=== PATIENT | male | born 1960 | race Caucasian/White ===

== ENCOUNTER → 2016-07-03 10:07 | Outpatient (CLI) | payer OTHER | END | disposition home or self-care (01) | LOC: D.RAD 10:00 | DX: Z02.71 Encounter for disability determination (principal) ==

== ENCOUNTER 2017-08-23 13:52 | Emergency (ER) | payer BC ==
--- NOTE | ~2017-08-23 | CN ---
PATIENT NAME:FERNY ASHER JR MEDICAL RECORD: [id number] : 64 LOCATION:D.ER ADMIT DATE: ACCOUNT: [id number] CONSULTING PHYSICIAN: HORACIO DAIGLE MD REFERRING PHYSICIAN: RAFAELA NORIEGA MD DATE OF CONSULTATION: 08/23/2017 DIAGNOSES: 1. Chest pain. 2. Hypertension. HISTORY: This is a gentleman who has history of hypertension, has been treated in the past but is not taking anything now. He presents to the ER with chest pressure. His systolic blood pressure is in 190, diastolic in 120s. His heart rate is 80, sinus rhythm. His EKG has no ST-T abnormalities. Troponin is normal. PHYSICAL EXAMINATION: GENERAL APPEARANCE: Well-nourished, well-developed, appears stated age. Level of distress, comfortable. PSYCHIATRIC: Mental status, alert, normal affect. Orientation, oriented to time, place and person. EYES: Lids and conjunctiva, noninjected. No discharge, no pallor. ENT: Lips, teeth, gums, normal dentition. Oropharynx, no cyanosis, no pallor. NECK: Carotid arteries, bilateral normal upstroke, no bruits, no thrills. JUGULAR VEINS: No jugular venous pressure or distention. CERVICAL LYMPH NODES: Nontender, nonenlarged. THYROID: Not enlarged. Nontender. No nodules. LUNGS: Respiratory effort, unlabored. CHEST: Normal curvature. No thoracic deformity. No chest wall tenderness. Percussion, resonant. Auscultation, clear. No wheezes, no rales, no rhonchi. CARDIOVASCULAR: Precordial exam, nondisplaced. No heaves or pericardial thrills. Rate and rhythm, regular. Heart sounds, normal S1, normal S2. No S3, no gallop, no rub. Systolic murmur, not heard. Diastolic murmur, not heard. EXTREMITIES: No cyanosis, no edema. Peripheral pulses, full and equal in all extremities, except as noted. No bruits appreciated. ABDOMEN: Soft, nondistended. Normal aorta. No bruit. Nontender. No masses. Liver, nontender, no hepatomegaly. Spleen, nontender, no splenomegaly. MUSCULOSKELETAL: No joint tenderness. No joint swelling. No erythema. NEUROLOGICAL: Normal gait, normal strength, normal tone. SKIN: Warm and dry. OVERALL IMPRESSION: Chest discomfort with out of control hypertension. Will center medical management on hypertension. We will start him on lisinopril 40 mg daily. If he continues to have chest pressure, I would be happy to followup as an outpatient. TRANSINT:[id number] Voice Confirmation ID: [id number] DOCUMENT ID: [id number] CONSULT REPORT [id number] FERNY ASHER JR, JEFFREY MD at 1006 CC: [id number] DICTATION DATE: 08/23/17 1632 ARCHITECTURAL JOB CAPTAIN: 08/23/17 1803 DEP ER 08/23/17 [address] [place] [address]
[2017-08-23 14:36] LABS: BASOPHILS 0.1 % (0-2); EOSINOPHILS 1.7 % (0-7); HEMATOCRIT 42.8 % (42.0-54.0); HEMOGLOBIN 14.6 g/dL (13.5-17.5); IMMATURE GRANULOCYTES 0.3 % (0-5); LYMPHOCYTES 26.1 % (15-50); MCH 31.7 pg (26.0-34.0); MCHC 34.1 g/dL (31.0-37.0); MEAN PLATELET VOLUME 9.5 fL (7.4-10.4); MONOCYTES 7.8 % (2-11); PLATELET COUNT 178 10x3/uL (130-400); RDW 12.7 % (11.5-14.5); WBC 7.8 10x3/uL (4.8-10.8)
[2017-08-23 14:53] LABS: ALBUMIN 3.4 g/dL (3.4-5.0); ALKALINE PHOSPHATASE 66 U/L (46-116); ALT (SGPT) 33 U/L (10-68); BILIRUBIN - TOTAL 0.29 mg/dL (0.2-1.3); CALC OSMOLALITY 274 mosm/kg (275-300); CALCIUM 8.5 mg/dL (8.5-10.1); CARBON DIOXIDE 25.2 mmol/L (21.0-32.0); CHLORIDE - SERUM 104 mmol/L (98-107); CREATININE - SERUM 0.8 mg/dL (0.6-1.3); GLUCOSE 97 mg/dL (74-106); POTASSIUM - SERUM 4.6 mmol/L (3.5-5.1); PROTEIN - SERUM 7.1 g/dL (6.4-8.2); SODIUM 138 mmol/L (136-145); UREA NITROGEN 11 mg/dL (7-18); eGFR NON AFRICAN AMERICAN > 90 mL/min (90-120)
[2017-08-23 14:57] LABS: INR 0.93 (0.85-1.17); PROTIME 12.1 SECONDS (11.6-15.0)
[2017-08-23 14:58] LABS: APTT 24.5 SECONDS (22.8-39.4)
[2017-08-23 14:59] LABS: D-DIMER-QUANTITATIVE 0.44 ug/mLFEU (0.20-0.54)
[2017-08-23 15:04] LABS: CHOL - HDL RATIO 4.5 ratio (2.3-4.9); CHOLESTEROL, TOTAL 194 mg/dL (0-200); CKMB 2.4 U/L (0.0-3.6); CREATINE KINASE 180 UL (21-232); HDL CHOLESTEROL 43 mg/dL (32-96); LDL CHOLESTEROL 136 mg/dL (0-100); LDL-HDL RATIO 3.2 ratio (1.5-3.5); TRIGLYCERIDE 79 mg/dL (30-200)
[2017-08-23 15:08] LABS: TROPONIN-I 0.017 ng/mL (0.000-0.060)
== END 2017-08-23 17:26 | disposition home or self-care (01) ==
LOC: D.ER 13:52
PROVIDERS: Family Medicine
DX: R07.9 Chest pain, unspecified (principal); I10 Essential (primary) hypertension; Z91.14 Patient's other noncompliance with medication regimen; R05 Cough; F17.200 Nicotine dependence, unspecified, uncomplicated

== ENCOUNTER 2018-04-30 13:40 | Inpatient (IN) | payer MEDICAID ==
[~2018-04-30] VITALS: Ht 172.7 cm; Wt 72.7 kg
--- NOTE | ~2018-04-30 | HEMODYNAMI ---
PATIENT:FERNY ASHER JR MEDICAL RECORD: [id number] : 64 LOCATION:[facility] D.[address] [facility]# [id number] ADMISSION DATE: 04/30/18 Generatedon:05/02/20189:46 Patient name: FERNY ASHER Patient #: [id number] SSN: : 1960 Date of study: 05/02/2018 Page: Of Hemodynamic Procedure Report Patient Data Patient Demographics Procedure consent was obtained First Name: FERNY Gender: Male Last Name: LAKESHIA Suffix: Jr Tinsley Initial: LANG : 1960 Patient #: [id number] Age: 57 year(s) Race: Unknown Additional ID: [id number] Contact details [address]: [address] [place] [address] State: [place] City: [facility] Zip code: [address] Past Medical History Allergies: No known allergies Admission Admission Data Admission Date: 04/30/2018 Admission Time: 17:53 Admit Source: Other Room #: D.2103 Procedure Procedure Types Cath Procedure Diagnostic Procedure LHC LHC w/Coronaries Procedure Description Procedure Date Procedure Date: 05/02/2018 Procedure Start Time: 9:31 Procedure End Time: 9:45 Procedure Staff Name Function Salvador Flores MD Performing Physician Roseann Alvarado RT Monitor Holden Murrell RT Scrub Kasey Hudson RN Nurse Procedure Data Cath Procedure Fluoroscopy Diagnostic fluoroscopy Total fluoroscopy Time: 1.7 time: 1.7 min min Diagnostic fluoroscopy Total fluoroscopy dose: 471 dose: 471 mGy mGy Contrast Material Contrast Material Type Amount (ml) Isovue 300 63 Entry Location Entry Primary Successful Side Size Upsize Upsize Entry Closure Isabel ccessful Closure Location (Fr) 1 (Fr) 2 (Fr) Remarks Device Remarks Radial Right 6 Fr Mechanical artery Short Compression Estimated blood loss: 5 ml Diagnostic catheters Device Type Used For End Catheter Placement DIAGNOSTIC Dominic 110cm LV Angiography 5Fr catheter ([id number]) DIAGNOSTIC Dominic 110cm Right Coronary 5Fr catheter ([id number]) Angiography DIAGNOSTIC Dominic 110cm Left Coronary 5Fr catheter (809850) Angiography Procedure Complications No complications Procedure Medications Medication Administration Route Dosage 0.9% NaCl I.V. 100 ml/hr Oxygen etCO2 Nasal cannula 2 l/min Lidocaine 2% added to field 20 Heparin Flush Bag added to field 2 bags (1000units/500ml NS) Radial Cocktail added to field 1 syringe (Verapomil 2mg/Nitro 400mcg/Heparin 1500units) Versed I.V. 2 mg Fentanyl I.V. 50 mcg Versed I.V. 2 mg Fentanyl I.V. 50 mcg Versed I.V. 1 mg Hemodynamics Rest Heart Rate: 64 (bpm) Pressure Samples Time Site Value (mmHg) Purpose Heart Use Rate(bpm) 9:33 LV 125/16,17 EDP 71 9:34 AO 143/77(104) Pullback 90 9:34 LV 114/10,12 Pullback 90 Gradients Valve Time Site 1 Site 2 Mean SEP/DFP Peak To Heart Use (mmHg) (sec/min) Peak Rate (mmHg) (bpm) Aortic 9:34 LV AO 0 3 0 90 114/10,12 143/77(104) Calculations Valve P-P Mean Valve Index Valve Source Name Gradient Area Flow (cm2) Aortic 0 0 0 0 Snapshots Pre Cath Intra NCS Post Cath Vital Signs Time Heart Resp SPO2 etCO2 NIBP (mmHg) Rhythm Pain Sedation Rate (ipm) (%) (mmHg) Status Level (bpm) 9:13:30 65 16 95 21 174/96(117) NSR 0 (11) 10(A) , No pain 9:17:48 67 12 96 23.9 161/95(133) NSR 0 (11) 10(A) , No pain 9:22:12 62 16 97 23.2 175/88(138) NSR 0 (11) 10(A) , No pain 9:26:42 61 11 98 29.2 160/89(124) NSR 0 (11) 10(A) , No pain 9:31:09 60 11 96 32.9 175/87(120) NSR 0 (11) 10(A) , No pain 9:35:23 64 11 96 35.2 130/78(108) NSR 0 (11) 9(A) , No pain 9:39:30 64 11 98 32.2 141/92(118) NSR 0 (11) 9(A) , No pain 9:43:48 62 11 97 31.4 145/88(109) NSR 0 (11) 10(A) , No pain Medications Time Medication Route Dose Verified Delivered Reason Notes Ef fectiveness by by 9:11:09 0.9% NaCl I.V. 100 Salvador Kasey used for ml/hr Mark Hudson equipment operator/laborer 9:11:16 Oxygen etCO2 2 l/min Salvador Kasey used for Nasal Mark Hudson procedure cannula RN 9:11:22 Lidocaine 2% added 20ml Salvador Salvador for local to vial Mark Flores MD anesthetic field 9:11:27 Heparin Flush added 2 bags Salvador Salvador used for Bag to Mark Flores MD procedure (1000units/500ml field NS) 9:11:36 Radial Cocktail added 1 Salvador Salvador used for (Verapomil to syringe Mark Flores MD procedure 2mg/Nitro field 400mcg/Heparin 1500units) 9:28:49 Versed I.V. 2 mg Salvador Kasey for Mark Hudson sedation RN 9:28:54 Fentanyl I.V. 50 mcg Salvador Kasey for Mark Hudson sedation RN 9:33:02 Versed I.V. 2 mg Salvador Kasey for Mark Hudson sedation RN 9:33:09 Fentanyl I.V. 50 mcg Salvador Kasey for Mark Hudson sedation RN 9:38:06 Versed I.V. 1 mg Salvador Kasey for Mark Hudson sedation residential appliance repair technician Log Time Note 8:34:46 Informed consent obtained and on chart 8:34:51 Admit Source: Other 8:35:06 Diagnostic Cath status Elective 8:35:09 Time tracking: Regular hours (M-F 7:00 - 5:00) 8:35:12 Plan of Care:Hemodynamics will remain stable., Cardiac rhythm will remain stable., Comfort level will be maintained., Respiratory function will remain adequate., Patient/ family verbilizes understanding of procedure., Procedure tolerated without complication., Recovers from procedure without complications.. 8:56:58 Holden CAMARENA(R) sent for patient. Start room use. 9:06:01 Patient received from PCU to CCL 1 Alert and oriented. Tansferred to table in Supine position. 9:06:03 Warm blankets applied, and laura hugger turned on for patient comfort. 9:06:03 Correct patient and procedure confirmed by team. 9:06:04 ECG and BP/O2 sat monitors applied to patient. 9:06:05 Full Disclosure recording started 9:10:57 Vital chart was started 9:11:09 0.9% NaCl 100 ml/hr I.V. was administered by Kasey Hudson RN; used for procedure; 9:11:16 Oxygen 2 l/min etCO2 Nasal cannula was administered by Kasey Hudson RN; used for procedure; 9:11:22 Lidocaine 2% 20ml vial added to field was administered by Salvador Flores MD; for local anesthetic; 9:11:27 Heparin Flush Bag (1000units/500ml NS) 2 bags added to field was administered by Salvador Flores MD; used for procedure; 9:11:36 Radial Cocktail (Verapomil 2mg/Nitro 400mcg/Heparin 1500units) 1 syringe added to field was administered by Salvador Flores MD; used for procedure; 9:14:53 Baseline sample Acquired. 9:14:58 Rhythm: sinus rhythm 9:15:10 H&P Date Dictated: 05/01/2018 Within 30 days and on chart.. 9:15:11 Pre-procedure instructions explained to patient. 9:15:12 Pre-op teaching completed and patient verbalized understanding. 9:15:14 Family in patients room. 9:15:15 Patient NPO since Midnight. 9:15:28 Patient allergic to No known allergies 9:15:32 Is the patient allergic to Iodine/contrast media? No. 9:15:34 Is patient on blood thinner?No 9:15:36 Patient diabetic? No. 9:15:39 Previous problem with sedation/anesthesia? No ? 9:15:39 Snore? Yes 9:15:42 Sleep apnea? No 9:15:43 Deviated septum? No 9:15:45 Opens mouth fully? Yes 9:15:46 Sticks out tongue? Yes 9:15:51 Airway obstruction? No ? 9:15:54 Dentures? Yes in 9:15:59 Pre procedure: right dorsailis pedis pulse 2+ Normal; easily identifiable; not easily obliterated 9:16:01 Modified Brock's test Ulnar < 7 seconds 9:16:03 Patient pain scale 0/10 ?. 9:16:19 IV patent on arrival in right antecubital with 0.9% NaCl at [facility]. 9:16:22 Lab results completed and on chart. 9:16:26 Right Radial & Right Groin area was prepped with chlora-prep and draped in sterile fashion 9:16:28 Alarms reviewed by R. N. 9:16:29 Sharps counted by scrub and verified by R.N. 9:16:33 Use device set Radial Dx or PCI 9:16:34 ACIST Syringe (33149) opened to sterile field. 9:16:34 Medline Cath Pack ([id number]) opened to sterile field. 9:16:35 Bag Decanter (2002S) opened to sterile field. 9:16:35 DIAGNOSTIC WIRE .035 260cm J wire (409992) opened to sterile field. 9:16:36 ACIST Hand Control (85918) opened to sterile field. 9:16:36 ACIST Manifold (86101) opened to sterile field. 9:16:39 SHEATH 6FR Slender (80-8682) opened to sterile field. 9:16:41 MBrace Wrist Support ([id number]) opened to sterile field. 9:16:43 NEEDLE Cook 21G 4cm Radial ([id number]) opened to sterile field. 9:28:21 Final Timeout: patient, procedure, and site verified with staff and physician. All members of the team are in agreement. 9:28:26 Right Radial site verified by team. 9:28:29 Physical assessment completed. ASA score P 2 - A patient with mild systemic disease as per Salvador Flores MD. 9:28:32 Sedation plan: IV Moderate Sedation Medication:Versed, Fentanyl 9:28:49 Versed 2 mg I.V. was administered by Kasey Hudson RN; for sedation; 9:28:54 Fentanyl 50 mcg I.V. was administered by Kasey Hudson RN; for sedation; 9:29:05 Zero performed for pressure channel P1 9:31:26 Procedure started. 9:31:36 Local anesthetic to right radial artery with Lidocaine 2% by Salvador Flores MD.INITIAL ACCESS ONLY 9:31:51 A 6 Fr Short sheath was inserted into the Right Radial artery 9:32:50 A DIAGNOSTIC Dominic 110cm 5Fr catheter (392390) was advanced over the wire and used for LV Angiography. 9:33:02 Versed 2 mg I.V. was administered by Kasey Hudson RN; for sedation; 9:33:09 Fentanyl 50 mcg I.V. was administered by Kasey Hudson RN; for sedation; 9:33:26 LV gram done using SANCHEZ 9:33:27 LV hemodynamics recorded. 9:33:30 Injector settings: Ml/sec: 7, Volume: 15, 9:33:39 EF : 55 % 9:34:16 A DIAGNOSTIC Dominic 110cm 5Fr catheter (057534) was advanced over the wire and used for Right Coronary Angiography. 9:35:57 A DIAGNOSTIC Dominic 110cm 5Fr catheter (561608) was advanced over the wire and used for Left Coronary Angiography. 9:38:06 Versed 1 mg I.V. was administered by Kasey Hudson RN; for sedation; 9:40:42 Catheter removed. 9:41:19 Sheath removed intact; hemostasis achieved with Mechanical Compression to the Right Radial artery. 9:41:24 Procedure ended.(Physican Out) 9:42:40 Fluoroscopy time 01.70 minutes. 9:42:45 Flurop Dose total: 471 9:42:45 Fluoroscopy dose: 471 mGy 9:43:06 Contrast amount:Isovue 300 63ml. 9:43:08 Sharps counted by scrub and verified by R.N. 9:43:11 TR band inflated with 10cc of air. 9:43:12 Insertion/operative site no bleeding no hematoma. 9:43:18 Post right radial artery:stable, clean and dry 9:43:20 Post Procedure Pulses reassessed and unchanged 9:43:23 Post-procedure physical assessment completed. ASA score P 2 - A patient with mild systemic disease as per Salvador Flores MD. 9:43:26 Post procedure rhythm: unchanged. 9:43:29 Estimated blood loss: 5 ml 9:43:30 Post procedure instruction explained to patient.Patient verbalizes understanding. 9:43:31 Patient needs reinforcement of post procedure teaching. 9:44:10 Procedure Complication : No complications 9:44:13 See physician's report for complete and final results. 9:44:17 TR BAND Standard ([id number]) opened to sterile field. 9:44:48 Procedure and supply charges have been captured, reviewed, submitted and are correct. 9:44:49 Vital chart was stopped 9:44:52 Report given to Pre/Post Procedure Room. 9:45:11 Patient transfered to Pre/Post Procedure Room with Stretcher. 9:45:18 Procedure ended. 9:45:18 Full Disclosure recording stopped 9:45:23 End room use (Document Last) Device Usage Item Name Manufacture Quantity Catalog Hospital Part Current Minimal Lot# / Number Charge Number Stock Stock Serial# Code ACIST Acist 1 80332 [id number] 147614 671180 20 Syringe Medical (14940) Systems Inc Medline Medline 1 [id number] 024272 26851 544545 5 Cath Pack ([id number]) Bag Microtek 1 2001S 788999 59242 969618 5 Decanter Medical Inc. () DIAGNOSTIC St Ben 1 285755 327800 209565 826293 30 WIRE .035 260cm J wire (623254) ACIST Hand Acist 1 08922 764727 489929 002593 5 Control Medical (90046) Systems Inc ACIST Acist 1 71501 403413 656629 874499 5 Manifold Medical (85421) Systems Inc SHEATH 6FR Terumo 1 [id number] 294392 640151 164706 5 Slender (80-1060) MBrace Advanced 1 140-0250-00 987731 55407 085074 5 Wrist Vascular Support Dynamics ([id number]) NEEDLE Cook Cook Medical 1 [id number] 631161 400066 338867 5 21G 4cm Radial (C32381) DIAGNOSTIC Terumo 1 40-0577 268442 715583 068657 5 Dominic 110cm 5Fr catheter (384890) TR BAND Terumo 1 [id number] 923793 548578 023232 40 Standard ([id number]) Signature Audit [place] Stage Time Signature Unsigned Intra-Procedure 05/02/2018 Roseann 9:46:23 AM Counts RT(R) Signatures Monitor : Roseann Signature : Counts RT Date : Time : [address] [place] [address]
[2018-04-30] MEDS ORDERED: COZAAR100 MG PO (14:00)
[2018-04-30 14:31] LABS: BASOPHILS 0.1 % (0-2); EOSINOPHILS 1.1 % (0-7); HEMATOCRIT 41.7 % (42.0-54.0); HEMOGLOBIN 14.2 g/dL (13.5-17.5); IMMATURE GRANULOCYTES 0.4 % (0-5); LYMPHOCYTES 28.4 % (15-50); MCH 31.5 pg (26.0-34.0); MCHC 34.1 g/dL (31.0-37.0); MCV 92.5 fL (80.0-100.0); MEAN PLATELET VOLUME 9.8 fL (7.4-10.4); MONOCYTES 9.2 % (2-11); NEUTROPHILS 60.8 % (40-80); PLATELET COUNT 180 10x3/uL (130-400); RBC 4.51 10x6/uL (4.20-6.10); RDW 13.1 % (11.5-14.5); WBC 7.4 10x3/uL (4.8-10.8)
[2018-04-30 14:49] LABS: ALBUMIN 3.3 g/dL (3.4-5.0); ANION GAP 14.7 mmol/L (8-16); BILIRUBIN - TOTAL 0.41 mg/dL (0.2-1.3); CALCIUM 8.8 mg/dL (8.5-10.1); CARBON DIOXIDE 29.2 mmol/L (21.0-32.0); CREATININE - SERUM 1.1 mg/dL (0.6-1.3); POTASSIUM - SERUM 4.9 mmol/L (3.5-5.1); PROTEIN - SERUM 6.9 g/dL (6.4-8.2)
[2018-04-30 16:29] LABS: MAGNESIUM - SERUM 2.3 mg/dL (1.8-2.4); THYROID STIMULATING HORMONE 0.79 uIU/mL (0.36-3.74); TROPONIN-I 0.023 ng/mL (0.000-0.060)
[2018-04-30 16:45] VITALS: BP 173/87
[2018-04-30 17:00] VITALS: BP 182/88
[2018-04-30 17:15] VITALS: BP 197/95
[2018-04-30 18:15] VITALS: BP 198/95
--- NOTE | 2018-04-30 18:31 | NUR ---
[facility] CALL REPORT ON PATIENT COMING TO ROOM 2102. PATIENT BP IS 191/92 AND IS GOING TO TREAT WITH APRESOLINE AND THEN PATIENT WILL BE TO THE FLOOR.
--- NOTE | 2018-04-30 19:05 | NUR ---
PT ARRIVED TO FLOOR BY WHEELCHAIR, NO S/S OF DISTRESS. CALL LIGHT IN REACH. WILL CONTINUE TO MONITOR.
[2018-04-30 20:23] VITALS: BP 196/82
--- NOTE | 2018-04-30 22:49 | NUR ---
MEASURED BP IN LEFT ARM AT 183/84 AND 195/81 IN RIGHT ARM. [address]ED DR WONG, ADMINISTERED 100 MG LOSARTAN THAT PT STATES HE TAKES AT HOME, AND 50 MG LOPRESSOR PO. WILL MONITOR FOR EFFECTIVENESS.
[2018-05-01] VITALS (8 sets, daily range): BP systolic 151–189; BP diastolic 61–97; BMI 25.1
--- NOTE | 2018-05-01 01:05 | NUR ---
PT FOUND ON FLOOR BY NADINE ALBARADO LPN, SITTING ON FLOOR. PT STATED TO NURSE, I ROLLED OUT OF BED, THEN LATER STATED I WAS TRYING TO GET BACK TO BED. PT STATED HIS ELBOW HURTS, UPON FURTHER INSPECTION NO OTHER ADDITIONAL INJURIES OR BRUISES NOTED TO SKIN. VITAL STABLE. PT PLACED BACK INTO BED, CALL LIGHT PLACED IN REACH AND INSTRUCTED NOT TO GET OUT OF BED WITHOUT CALLING FOR HELP. BED ALARM TURNED ON. WILL CONTINUE TO MONITOR.
--- NOTE | 2018-05-01 05:45 | NUR ---
PT RESTING IN BED WITH NO DISTRESS. MONITOR AND CPOC.
--- NOTE | 2018-05-01 07:00 | NUR ---
RECEIVED REPORT. ASSUMED CARE OF PATIENT. CALL LIGHT WITHIN REACH. NO DISTRESS. DENIES CHEST PAIN. PATIENT LYING IN BED ON LEFT LATERAL SIDE. NO DISTRESS.
--- NOTE | 2018-05-01 07:37 | NUR ---
PROVIDED PATIENT WITH CLEAN URINAL. URINE OBTAINED AT THIS TIME FOR UDS AND UA.
[2018-05-01 07:50] LABS: APPEARANCE CLEAR (CLEAR); BILIRUBIN NEGATIVE (NEGATIVE); COLOR YELLOW (YELLOW); GLUCOSE NEGATIVE (NEGATIVE); KETONE NEGATIVE (NEGATIVE); NITRITE NEGATIVE (NEGATIVE); PROTEIN NEGATIVE (NEGATIVE); UROBILINOGEN NORMAL (NORMAL)
[2018-05-01 08:04] LABS: UDS - AMPHET NEGATIVE QUAL (NEGATIVE); UDS - BARB NEGATIVE QUAL (NEGATIVE); UDS - BENZO NEGATIVE QUAL (NEGATIVE); UDS - COCAINE NEGATIVE QUAL (NEGATIVE); UDS - OPIATE NEGATIVE QUAL (NEGATIVE); UDS - PCP NEGATIVE QUAL (NEGATIVE); UDS - THC NEGATIVE QUAL (NEGATIVE)
[2018-05-01 08:27] LABS: BASOPHILS 0.1 % (0-2); EOSINOPHILS 1.7 % (0-7); HEMATOCRIT 40.2 % (42.0-54.0); HEMOGLOBIN 13.7 g/dL (13.5-17.5); IMMATURE GRANULOCYTES 0.4 % (0-5); LYMPHOCYTES 30.3 % (15-50); MCH 31.4 pg (26.0-34.0); MCHC 34.1 g/dL (31.0-37.0); MONOCYTES 12.8 % (2-11); NEUTROPHILS 54.7 % (40-80); PLATELET COUNT 203 10x3/uL (130-400); RBC 4.37 10x6/uL (4.20-6.10); WBC 7.3 10x3/uL (4.8-10.8)
[2018-05-01 09:01] LABS: CALC OSMOLALITY 274 mosm/kg (275-300); CALCIUM 8.4 mg/dL (8.5-10.1); CARBON DIOXIDE 28.4 mmol/L (21.0-32.0); CHLORIDE - SERUM 103 mmol/L (98-107); GLUCOSE 107 mg/dL (74-106); POTASSIUM - SERUM 4.5 mmol/L (3.5-5.1); SODIUM 138 mmol/L (136-145); UREA NITROGEN 11 mg/dL (7-18); eGFR NON AFRICAN AMERICAN 82 mL/min (90-120)
--- NOTE | 2018-05-01 11:47 | NUR ---
NICOTINE PATCH TO RIGHT SHOULDER. NO DISTRESS.
--- NOTE | 2018-05-01 14:23 | NUR ---
RESTING IN BED. VISITORS AT BEDSIDE. CALL LIGHT WITHIN REACH. DENIES ANY NEEDS AT THIS TIME. NO DISTRESS.
--- NOTE | 2018-05-01 15:19 | NUR ---
CONSENTS SIGNED AND ON THE CHART FOR HEART CATH IN AM. BLOOD CONSENT ALSO SIGNED.
--- NOTE | 2018-05-01 15:51 | NUR ---
MEDICATED FOR ELEVATED BP 198/98. 2 VISITORS AT BEDSIDE, NOW HAVE LEFT. NO DISTRESS.
--- NOTE | 2018-05-01 15:58 | NUR ---
BP NOW 154/82 AFTER APRESOLINE ADMINISTRATION
--- NOTE | 2018-05-01 17:04 | NUR ---
SHOWER COMPLETE AND TELEMETRY REAPPLIED. NO DISTRESS.
--- NOTE | 2018-05-01 18:17 | NUR ---
RESTING IN BED, ATTENTION TOWARD TELEVISION. NO DISTRESS. DENIES NEEDS.
--- NOTE | 2018-05-01 19:12 | NUR ---
REPORT RECEIVED. PT SITTING UP IN BED WITH EYES OPEN, RR EVEN AND UNLABORED. BED IN LOW POSITION. NO S/S OF DISTRESS. PT ASKED QUESTIONS ABOUT SUPERVISOR BRAKE REPAIR AND WAS INFORMED HE WAS NPO AFTER MIDNIGHT. PT STATES UNDERSTANDING. DENIES NEEDS. CALL LIGHT IN REACH. WILL CONTINUE TO MONITOR.
--- NOTE | 2018-05-01 22:04 | NUR ---
ADMINISTERED ORDERED ANALGESIC FOR COMPLAINTS OF LEFT LOWER QUADRANT PAIN, PT STATES PAIN OF 6 ON A SCALE OF 0-10.
--- NOTE | 2018-05-01 23:34 | NUR ---
CALLED DR WONG REGARDING PT COMPLAINTS OF PAIN CONTINUING IN LEFT LOWER QUADRANT. DR WONG ORDERED NORCO 5 Q 4 HOURS PRN FOR PAIN. ADMINISTERED ORDERED ANALGESIC FOR COMPLAINTS OF PAIN IN LEFT LOWER QUADRANT. PT STATES PAIN OF 6 ON A SCALE OF 0-10.
[2018-05-02] VITALS (10 sets, daily range): BP systolic 130–192; BP diastolic 71–99
--- NOTE | 2018-05-02 02:10 | NUR ---
PT LYING IN BED WITH EYES CLOSED, RR EVEN AND UNLABORED. BED IN LOW POSITION. SIDE RAILS UP X2. UNNAMED FEMALE ACQUAINTANCE AT BEDSIDE. NO S/S OF DISTRESS. CALL LIGHT IN REACH. WILL CONTINUE TO MONITOR.
--- NOTE | 2018-05-02 03:11 | NUR ---
RESTING IN BED WITH NO DISTRESS. RESPS EVEN/NONLABORED. CALL LIGHT IN REACH. MONITOR AND CPOC.
--- NOTE | 2018-05-02 05:36 | NUR ---
PT LYING ON RIGHT SIDE IN BED WITH FEMALE ACQUAINTANCE, STATES ORDERED ANALGESIC HAS BEEN EFFECTIVE FOR MANAGEMENT OF LEFT LOWER QUADRANT PAIN. NO S/S OF DISTRESS. CALL LIGHT IN REACH. BED IN LOW POSITION. WILL CTM.
[2018-05-02 05:44] LABS: BASOPHILS 0.3 % (0-2); EOSINOPHILS 1.7 % (0-7); HEMATOCRIT 41.5 % (42.0-54.0); HEMOGLOBIN 14.1 g/dL (13.5-17.5); IMMATURE GRANULOCYTES 1.2 % (0-5); LYMPHOCYTES 36.8 % (15-50); MCH 31.2 pg (26.0-34.0); MCV 91.8 fL (80.0-100.0); MEAN PLATELET VOLUME 9.7 fL (7.4-10.4); MONOCYTES 10.1 % (2-11); NEUTROPHILS 49.9 % (40-80); PLATELET COUNT 226 10x3/uL (130-400); RBC 4.52 10x6/uL (4.20-6.10); WBC 7.7 10x3/uL (4.8-10.8)
[2018-05-02 06:01] LABS: CALC OSMOLALITY 280 mosm/kg (275-300); CALCIUM 8.5 mg/dL (8.5-10.1); CARBON DIOXIDE 29.9 mmol/L (21.0-32.0); CHLORIDE - SERUM 104 mmol/L (98-107); CHOL - HDL RATIO 4.9 ratio (2.3-4.9); CHOLESTEROL, TOTAL 147 mg/dL (0-200); GLUCOSE 98 mg/dL (74-106); HDL CHOLESTEROL 30 mg/dL (32-96); LDL CHOLESTEROL 96 mg/dL (0-100); LDL-HDL RATIO 3.2 ratio (1.5-3.5); SODIUM 141 mmol/L (136-145); TRIGLYCERIDE 108 mg/dL (30-200); UREA NITROGEN 13 mg/dL (7-18); eGFR NON AFRICAN AMERICAN 82 mL/min (90-120)
--- NOTE | 2018-05-02 06:33 | NUR ---
ADMINISTERED ORDERED ANALGESIC FOR COMPLAINTS OF LEFT LOWER QUADRANT PAIN, PT STATES PAIN OF 6 ON A SCALE OF 0-10.
--- NOTE | 2018-05-02 09:49 | NUR ---
SPOKE WITH ANTONIETA IN CLAIM TRAINEE SHE STATED "LEFT HEART DR. YOUSSEF PT WILL NEED SURGERY WILL CONSULT DR. MCDONOUGH. RIGHT RADIAL HAS 10 IN IT AND PT GOT 5 VERSED AND 100 FENTANYL."
--- NOTE | 2018-05-02 10:00 | NUR ---
PT RETURNED FROM SHEETER OPERATOR. ALERT AND ORIENTED. O2 AT 2L VIA NC. RIGHT AC NS AT 100. RIGHT TR BAND ON. PP CHECKED. VS STABLE. WILL CONTINUE TO MONITOR. BED LOW. CL IN REACH.
--- NOTE | 2018-05-02 11:21 | NUR ---
RESTING QUIETLY NAD NOTED
--- NOTE | 2018-05-02 12:16 | NUR ---
VS MACHINE UNPLUGGED FROM WALL AND LOST MOST OF ALL POST OP VS.
--- NOTE | 2018-05-02 19:30 | NUR ---
REPORT RECEIVED. PATIENT SITTING UP IN BED WHILE VISITING WITH FAMILY. ALERT AND ORIENTED. TELEMETRY ON. IV TO RIGHT AC SL. FLUSHES WITHOUT DIFFICULTY. BANDAGE TO RIGHT WRIST FROM HEART CATH DONE TODAY. PATIENT STATING HE IS HAVING OPEN HEART SURGERY WEDNESDAY AT 1030. PATIENT DENIES HAVING ANY NEEDS AT THIS TIME. BED IN LOWEST POSITION. SIDE RAILS UP. CALL LIGHT IN REACH. WILL CONTINUE PLAN OF CARE.
--- NOTE | 2018-05-02 20:58 | NUR ---
PATIENT COMPLAINS OF LEFT LOWER QUADRANT PAIN. RATED AT 5 ON SCALE OF 0 TO 10. NORCO GIVEN FOR PAIN. WILL CONTINUE TO MONITOR.
[2018-05-03] VITALS (9 sets, daily range): BP systolic 153–188; BP diastolic 68–92
--- NOTE | 2018-05-03 00:10 | NUR ---
PATIENT COMPLAINS OF CHEST DISCOMFORT. RATED A 6 ON SCALE OF 0-10. TYLENOL GIVEN FOR DISCOMFORT.
--- NOTE | 2018-05-03 04:00 | NUR ---
PATIENT RESTING IN BED WITH EYES CLOSED. NO SIGNS OF DISTRESS. SIGNIFICANT OTHER AT BEDSIDE. BED IN LOWEST POSITION. SIDE RAILS UP. CALL LIGHT IN REACH. WILL CONTINUE PLAN OF CARE.
[2018-05-03 05:33] LABS: BASOPHILS 0.1 % (0-2); EOSINOPHILS 1.4 % (0-7); HEMATOCRIT 39.1 % (42.0-54.0); HEMOGLOBIN 13.2 g/dL (13.5-17.5); IMMATURE GRANULOCYTES 1.2 % (0-5); LYMPHOCYTES 33.6 % (15-50); MCH 31.1 pg (26.0-34.0); MCHC 33.8 g/dL (31.0-37.0); MCV 92.2 fL (80.0-100.0); MEAN PLATELET VOLUME 9.6 fL (7.4-10.4); MONOCYTES 10.9 % (2-11); NEUTROPHILS 52.8 % (40-80); PLATELET COUNT 254 10x3/uL (130-400); RBC 4.24 10x6/uL (4.20-6.10); RDW 12.9 % (11.5-14.5); WBC 8.4 10x3/uL (4.8-10.8)
[2018-05-03 06:12] LABS: ALBUMIN 2.8 g/dL (3.4-5.0); ALKALINE PHOSPHATASE 62 U/L (46-116); ALT (SGPT) 26 U/L (10-68); BILIRUBIN - TOTAL 0.29 mg/dL (0.2-1.3); CALC OSMOLALITY 275 mosm/kg (275-300); CALCIUM 8.2 mg/dL (8.5-10.1); CARBON DIOXIDE 28.4 mmol/L (21.0-32.0); CHLORIDE - SERUM 103 mmol/L (98-107); GLUCOSE 98 mg/dL (74-106); MAGNESIUM - SERUM 1.9 mg/dL (1.8-2.4); POTASSIUM - SERUM 4.1 mmol/L (3.5-5.1); PROTEIN - SERUM 6.5 g/dL (6.4-8.2); SODIUM 138 mmol/L (136-145); UREA NITROGEN 13 mg/dL (7-18); eGFR NON AFRICAN AMERICAN 82 mL/min (90-120)
--- NOTE | 2018-05-03 07:26 | NUR ---
PATIENT IS RESTING QUIETLY WITH EYES CLOSED. FAMILY MEMBER IN BED WITH PATIENT, ALSO APPEARS TO BE SLEEPING. NO NEEDS DECLARED AT THIS TIME. ACCORDING TO NIGHT NURSE, PATIENT IS GOING TO HAVE OPEN HEART SURGERY ON WEDNESDAY AND THERE IS NO CONSENT OR ORDER TO OBTAIN CONSENT NOTED AT THIS TIME. NIGHT NURSE REPORTS THAT PATIENT IS AWARE OF UPCOMING PROCEDURE AND HAD A CATH YESTERDAY THROUGH THE RIGHT WRIST. RIGHT AC IV IS SALINE LOCKED.
--- NOTE | 2018-05-03 10:39 | NUR ---
RESTING QUIETLY NAD NOTED
[2018-05-03 13:13] LABS: APTT 25.9 SECONDS (22.8-39.4); INR 0.99 (0.85-1.17); PROTIME 12.6 SECONDS (11.6-15.0)
[2018-05-03 13:20] LABS: ALBUMIN 3.1 g/dL (3.4-5.0); ALKALINE PHOSPHATASE 64 U/L (46-116); ALT (SGPT) 28 U/L (10-68); BILIRUBIN - TOTAL 0.41 mg/dL (0.2-1.3); CALC OSMOLALITY 278 mosm/kg (275-300); CALCIUM 8.4 mg/dL (8.5-10.1); CARBON DIOXIDE 27.8 mmol/L (21.0-32.0); CHLORIDE - SERUM 104 mmol/L (98-107); CHOLESTEROL, TOTAL 160 mg/dL (0-200); CREATININE - SERUM 0.9 mg/dL (0.6-1.3); GLUCOSE 108 mg/dL (74-106); POTASSIUM - SERUM 4.1 mmol/L (3.5-5.1); PROTEIN - SERUM 6.9 g/dL (6.4-8.2); SODIUM 139 mmol/L (136-145); T4 THYROXIN - FREE 1.15 ng/dL (0.76-1.46); UREA NITROGEN 13 mg/dL (7-18); URIC ACID 3.5 mg/dL (2.6-7.2); eGFR NON AFRICAN AMERICAN > 90 mL/min (90-120)
[2018-05-03 15:03] LABS: BASOPHILS 0.3 % (0-2); EOSINOPHILS 1.2 % (0-7); HEMATOCRIT 39.7 % (42.0-54.0); HEMOGLOBIN 13.5 g/dL (13.5-17.5); IMMATURE GRANULOCYTES 1.1 % (0-5); MCH 31.3 pg (26.0-34.0); MCV 91.9 fL (80.0-100.0); MEAN PLATELET VOLUME 10.1 fL (7.4-10.4); MONOCYTES 9.6 % (2-11); NEUTROPHILS 62.8 % (40-80); PLATELET COUNT 290 10x3/uL (130-400); RBC 4.32 10x6/uL (4.20-6.10); RDW 12.8 % (11.5-14.5); WBC 9.3 10x3/uL (4.8-10.8)
--- NOTE | 2018-05-03 16:14 | NUR ---
IV REMOVED FROM PT RIGHT AC IT WAS INFLITRATED. REMOVED WITH CATHETER INTACT. PATIENT HAS HAD A SHOWER, AND HAS HAD CHEST SHAVED. EKG IN CHART. GOING IN TO HAVE CONSENTS SIGNED AT THIS TIME. NPO SIGN PLACED ON DOOR TO START TONIGHT AFTER MIDNIGHT. DR CAMPOVERDE THE ANESTHESIOLOGIST CAME AND TALKED WITH THE PATIENT. B/P TAKEN ON BOTH ARMS, RIGHT ARM IS 157/81, AND LEFT ARM IS 174/76. THE DIFFERENCE IS NOT GREATER THEN 20mmHg .
--- NOTE | 2018-05-03 16:42 | NUR ---
IV START IN RIGHT FOREARM. 20 G ONE STICK, PATIENT TOLERATED. ANTIBIOTIC IS INFUSING. CONSENTS SIGNED. NPO SIGN ON DOOR. COLLECTING UA AND SPUTUM CULTURE AT THIS TIME.
[2018-05-03 17:12] LABS: APPEARANCE CLEAR (CLEAR); BILIRUBIN NEGATIVE (NEGATIVE); COLOR YELLOW (YELLOW); GLUCOSE NEGATIVE (NEGATIVE); KETONE NEGATIVE (NEGATIVE); NITRITE NEGATIVE (NEGATIVE); PROTEIN NEGATIVE (NEGATIVE); SPECIFIC GRAVITY 1.015 (1.005-1.020); UROBILINOGEN NORMAL (NORMAL)
--- NOTE | 2018-05-03 19:39 | NUR ---
JUST GAVE REPORT TO CV ICU, PATIENT IS BEING TRANSFERED TO ROOM 06.
--- NOTE | 2018-05-03 20:00 | NUR ---
PATIENT ARRIVED TO UNIT VIA WHEELCHAIR ACCOMPANIED BY RN AND GIRLFRIEND. GAIT STEADY, ABLE TO TRANSFER SELF FROM WHEELCHAIR TO BED INDEPENDENTLY WITHOUT ANY PROBLEMS, NO WEAKNESS NOTED. ALL ICU MONITORING INITIATED. PPP. TELEMETRY MONITORING HR 68, SINUS RHYTHM. 02 SAT 97% ON ROOM AIR. ORAL TEMPERATURE 98.3. BP 177/86. DENIES PAIN OR NEEDS. PATIENT'S AND GIRLFRIENDS QUESTIONS ANSWERED. INFORMED THEM OF ICU VISITING HOURS, GIRLFRIEND STATED "WELL THAT JUST MAKES ME MAD, I DID NOT KNOW I WAS NOT GOING TO BE ABLE TO STAY WITH HIM" INFORMED HER THAT SHE IS MORE THAN WELCOME TO CALL UNIT FOR UPDATES AND COME BACK AT 4 AM FOR THE NEXT VISITING HOUR, AFTER A COUPLE OF MINUTES SHE STATED "I UNDERSTAND I AM NOT MAD AT YOU" BOTH DENIE FURTHER NEEDS OR QUESTIONS. CALL LIGHT WITHIN REACH. WILL CONTINUE TO MONITOR.
--- NOTE | 2018-05-03 21:07 | NUR ---
CALL LIGHT ANSWERED. GIRLFRIEND IN ROOM. PATIENT STATING HE WOULD LIKE SOMETHING TO EAT. SANDWICH TRAY PROVIDED. INFORMED HIM OF NPO STATUS AFTER MIDNIGHT HE STATED HE IS AWARE. DENIES OTHER NEEDS. CALL LIGHT WITHIN REACH.
--- NOTE | 2018-05-03 22:05 | NUR ---
INFORMED PATIENT THAT HE NEEDED TO BE CLIPPED FROM CHIN TO TOES PER DOCTOR'S ORDERS, HE STATED "I WILL NOT SHAVE OFF MY PALM, IF THEY DO IT I WILL BE VERY PISSED OFF" PATIENT CLIPPED FROM CHEST TO TOES AND HIBICLINES BATH PROVIDED.
--- NOTE | 2018-05-03 23:04 | NUR ---
REASSESSMENT COMPLETED PER FLOW SHEET, SEE FOR DETAILS. NO ACUTE CHANGES NOTED. DENIES NEEDS. CALL LIGHT WITHIN REACH. WILL CONTINUE TO MONITOR.
[2018-05-04] VITALS (35 sets, daily range): BP systolic 101–170; BP diastolic 49–96; Ht 172.7 cm; Wt 72.7 kg
--- NOTE | 2018-05-04 01:00 | NUR ---
RESTING IN BED, DENIES NEEDS. CALL LIGHT WITHIN REACH.
--- NOTE | 2018-05-04 03:01 | NUR ---
REASSESSMENT COMPLETED PER FLOW SHEET, SEE FOR DETAILS. NO ACUTE DISTRESS NOTED. DENIES NEEDS. CALL LIGHT WITHIN REACH. WILL CONTINUE TO MONITOR.
--- NOTE | 2018-05-04 05:00 | NUR ---
RESTING IN BED, DENIES NEEDS. CALL LIGHT WITHIN REACH. WILL CONTINUE TO MONITOR.
[2018-05-04 05:47] LABS: BASOPHILS 0.1 % (0-2); EOSINOPHILS 1.6 % (0-7); HEMATOCRIT 39.4 % (42.0-54.0); HEMOGLOBIN 13.2 g/dL (13.5-17.5); IMMATURE GRANULOCYTES 1.1 % (0-5); LYMPHOCYTES 27.8 % (15-50); MCH 30.8 pg (26.0-34.0); MCHC 33.5 g/dL (31.0-37.0); MCV 91.8 fL (80.0-100.0); MEAN PLATELET VOLUME 9.8 fL (7.4-10.4); MONOCYTES 12.9 % (2-11); NEUTROPHILS 56.5 % (40-80); PLATELET COUNT 286 10x3/uL (130-400); RBC 4.29 10x6/uL (4.20-6.10); RDW 12.8 % (11.5-14.5); WBC 8.8 10x3/uL (4.8-10.8)
[2018-05-04 06:13] LABS: ALKALINE PHOSPHATASE 63 U/L (46-116); ALT (SGPT) 28 U/L (10-68); BILIRUBIN - TOTAL 0.52 mg/dL (0.2-1.3); CALC OSMOLALITY 276 mosm/kg (275-300); CALCIUM 8.7 mg/dL (8.5-10.1); CARBON DIOXIDE 27.1 mmol/L (21.0-32.0); CHLORIDE - SERUM 102 mmol/L (98-107); GLUCOSE 105 mg/dL (74-106); PROTEIN - SERUM 6.7 g/dL (6.4-8.2); SODIUM 138 mmol/L (136-145); UREA NITROGEN 14 mg/dL (7-18); eGFR NON AFRICAN AMERICAN 82 mL/min (90-120)
--- NOTE | 2018-05-04 09:37 | NUR ---
0700 PT RECIEVED ALERT AND ORIENTED ON ROOM AIR, VSS DENIES PAIN, DENIES QUESTIONS ABOUT SURGERY, SEE SHIFT ASSESSMENT FOR DETAIL 0830 SPOKE WITH SHERLYN ZHOU NURSE, ORDERS TO HOLD LOPRESSOR AND NICOTINE PATCH, TOOK OTHER AM MEDS 0900 DR MCDONOUGH HERE, ORDERS FOR 12.5 LOPRESSOR X1, FAMILY IN ROOM AND ALSO DENY ANY QUESTIONS ABOUT SURGERY
--- NOTE | 2018-05-04 11:18 | NUR ---
1030 PT TO OR WITH OR TEAM
--- NOTE | 2018-05-04 18:29 | NUR ---
PT ARRIVED FROM OR 1752 SEDATED ON VENT, ETT 8.0 PLACED ON VENT, R IJ CVL DRESSING CDI WITH PLASMALYTE 100ML/HR AND CORDARONE INFUSING 10ML/HR (VERIFIED WITH DR MCDONOUGH TO RUN 10ML/HR FOR 6 HOURS THEN 5ML/HR UNTIL 0800) ZINACEF INITATED, MIDSTERNAL DRESSING CDI SUBSTERNAL CT, 2 CT Y'D TOGETHER WITH [address] TO SUCTION, AIR LEAK NOTED AND DR MCDONOUGH AWARE, SUBSTERNAL MELLY DRAIN, DRAIN DOES NOT STAY COMPRESSED, DR MCDONOUGH AWARE, TPM WIRE COILED TO CHEST UNDER DRESSING, R RADIAL ART LINE ZEROED, GOOD WAVEFORM, WRIST PROTECTOR IN PLACE, RLE HARVEST SITES CDIWITH COBAN WRAPPED ANKLE TO GROIN, CXR DONE, GIRLFRIENT AT BEDSIDE AND DENIES ALL QUESTIONS
--- NOTE | 2018-05-04 18:52 | NUR ---
UPDATED DR MCDONOUGH ON PT VITALS, IV FLUIDS AND OUTPUTS NO NEW ORDERS
--- NOTE | 2018-05-04 19:00 | NUR ---
REPORT RECEIVED CARE ASSUMED. PT LAYING IN BED RESTING RESPONDS TO STIMULUS. EYES OPEN SPONTANEOUSLY. VSS. ASSESSMENT DONE SEE FLOW SHEET. MELLY DRAIN NOT COMPRESSED DUE TO AIR LEAK DRESSING REINFORCED. MELLY NOW COMPRESSIBLE. CT ANTERIOR AND POSTERIOR BOX WITH AIR LEAK. CT TO 20 CM SUCTION. R RADIAL MARGOTH FLUSHED HEPARIN BAG CHANGED. WILL CONTINUE TO MONITOR.
--- NOTE | 2018-05-04 20:00 | NUR ---
FAMILY AT BEDSIDE. QUESTIONS ANSWERED TEACHING PROVIDED. RT AT BEDSIDE WORKING TOWARDS EXTUBATION. VSS. WILL CONTINUE TO MONITOR.
--- NOTE | 2018-05-04 20:33 | NUR ---
SON AT BEDSIDE REPORTS PT DRINKS EVERY DAY 4-5 BEERS. STOPPED DRINKING WHISKEY 2 WEEKS AGO. REPORTED DRINKS WHISKEY EVERYDAY PRIOR TO 2 WEEKS. WILL PASS IN AM REPORT.
--- NOTE | 2018-05-04 21:22 | NUR ---
BLOOD GAS REVIEWED. TREATING BASE EXCESS PER PROTOCOL
--- NOTE | 2018-05-04 22:23 | NUR ---
PT BREATHING GREATER THAN 20 TIMES A MINUTE. POINTING TO CT SITE. NODDING HEAD WHEN ASKED IF HURTS MED GIVEN PER MAR.
--- NOTE | 2018-05-04 23:46 | NUR ---
DR MCDONOUGH INFORMED OF PT STATUS ORDER TO REDRAW BLOOD GAS IN 30 MINUTES GIVEN. OK TO EXTUBATE IF CO2 AT 45 OR LESS. WILL CONTINUE TO MONITOR.
[2018-05-05] VITALS (74 sets, daily range): BP systolic 114–154; BP diastolic 59–100
--- NOTE | 2018-05-05 00:01 | NUR ---
FAMILY UPDATED QUESTIONS ANSWERED.
--- NOTE | 2018-05-05 00:11 | NUR ---
CT AIR LEAK INTERMITENT. WILL CONTINUE TO MONITOR.
--- NOTE | 2018-05-05 00:32 | NUR ---
INCREASE IN BP NOTED TITRATING NITRO TO AFFECT.
--- NOTE | 2018-05-05 01:13 | NUR ---
PT EXTUBATED 0100. RESTRAINTS REMOVED. VSS. WILL CONITNUE TO MONITOR.
--- NOTE | 2018-05-05 03:00 | NUR ---
PT DANGLED AT BEDSIDE. VSS. MINIMAL CT OUT PUT. GOOD COUGH. IS 750. PARTIAL BED BATH GIVEN. WILL CONTINUE TO MONTIOR.
--- NOTE | 2018-05-05 06:00 | NUR ---
0500 MILENA PA AT BEDSIDE. ORDER TO REMOVE COBAN GIVEN. COBAN REMOVED 3XINCISIONS GLUED AND WELL APPROXIMATED. 4X4 PLACED TO PROTECT FROM APPLIED ROXY. 0600 PT AMBULATED WITH MINIMAL ASSISTANCE TO BED. DECREASE IN BP NOTED. NITRO STOPPED. VSS. BP IN PARAMETER. WATER PROVIDED PER PT REQUEST.
[2018-05-05 06:07] LABS: ALBUMIN 2.8 g/dL (3.4-5.0); ANION GAP 12.6 mmol/L (8-16); BILIRUBIN - TOTAL 0.86 mg/dL (0.2-1.3); CALCIUM 7.5 mg/dL (8.5-10.1); CARBON DIOXIDE 26.8 mmol/L (21.0-32.0); MAGNESIUM - SERUM 2.3 mg/dL (1.8-2.4); POTASSIUM - SERUM 4.4 mmol/L (3.5-5.1); PROTEIN - SERUM 5.8 g/dL (6.4-8.2)
[2018-05-05 06:09] LABS: HEMATOCRIT 34.2 % (42.0-54.0); HEMOGLOBIN 11.8 g/dL (13.5-17.5); LYMPHOCYTES 5.6 % (15-50); MCH 31.8 pg (26.0-34.0); MCHC 34.5 g/dL (31.0-37.0); MCV 92.2 fL (80.0-100.0); MEAN PLATELET VOLUME 8.6 fL (7.4-10.4); NEUTROPHILS 87.9 % (40-80); PLATELET COUNT 229 10x3/uL (130-400); RBC 3.71 10x6/uL (4.20-6.10); RDW 12.5 % (11.5-14.5)
[2018-05-05 06:16] LABS: WBC 18.3 10x3/uL (4.8-10.8)
[2018-05-05 06:27] LABS: CREATININE - SERUM 1.3 mg/dL (0.6-1.3)
--- NOTE | 2018-05-05 07:30 | NUR ---
PT RECIEVED UP IN CHAIR ALERT AND ORIENTED O2 4L NC R IJ CVL DRESSING CDI WITH PLASMALYTE CORDARONE AND ZINACEF INFUSING, MIDSTERNAL AND SUBSTERNAL DRESSINGS CDI WITH SUBSTERNAL CT WITH INTERMITTEN AIR LEAK AND SUBSTERNAL MELLY DRAIN COMPRESSED, RLE HARVEST SITES CDI SINGH DRAINING CLEAR YELLOW URINE R A LINE ZEROED GOOD WAVEFORM DENIES ALL NEEDS WILL CONTINUE TO MONITOR
--- NOTE | 2018-05-05 09:17 | NUR ---
A LINE DCD PER PROTOCOL TIP INTACT SINGH CATH DCD PT TOLERATED WELL
--- NOTE | 2018-05-05 11:21 | NUR ---
REX ZHOU NURSE SHERLYN AND AWARE OF HTN, WILL RESTART NITRO GTT
--- NOTE | 2018-05-05 13:48 | NUR ---
SHIFT REPORT RECEIVED FROM TYLER FOY. PT IN CHAIR. EYES CLOSED. VISITOR AT BEDSIDE. WILL CONTINUE TO MONITOR.
--- NOTE | 2018-05-05 14:14 | OP ---
PATIENT NAME: FERNY ASHERJOSE BRITTON MEDICAL RECORD: [id number] :64 LOCATION:D.CVI D.CV06 ADMISSION DATE:05/02/18 SURGEON: DAVID MCDONOUGH MD DATE OF OPERATION: 05/04/2018 SURGEON: David Mcdonough MD ASSISTANTS: 1. Mendez Gifford MD 2. Adriano Borja OPERATIONS PERFORMED: 1. Coronary artery bypass graft times 5 (left internal mammary artery to LAD, reverse saphenous vein graft from aorta to first diagonal, aorta to ramus intermedius sequenced on to obtuse marginal, and aorta to proximal posterior descending artery). 2. Endoscopic saphenous vein harvest. PREOPERATIVE DIAGNOSIS: Coronary disease with unstable angina. POSTOPERATIVE DIAGNOSIS: Coronary disease with unstable angina. ANESTHESIA: General endotracheal anesthesia. ESTIMATED BLOOD LOSS: Total cardiopulmonary bypass with Cell Saver retransfusion. COMPLICATIONS: None. SPECIMENS: None. CONDITION: Stable. DISPOSITION: CV ICU. OPERATIVE FINDINGS: 1. Good quality greater saphenous vein harvested endoscopically from the right thigh and lower leg. 2. Transesophageal echocardiography revealed severe left ventricular hypertrophy. 3. Good quality left internal mammary artery. The LAD was a 2.0-mm vessel. 4. The branching first diagonal was a thin walled 1.5-mm vessel. 5. The ramus intermedius was a thin walled 1.5-mm vessel and this was [id number] sequential to the obtuse marginal graft. The obtuse marginal was 1.5 mm and also thin-walled vessel. 6. The right coronary was calcified throughout. The proximal posterior descending artery was a 2.5-mm vessel. 7. Small amount of bullous emphysema of the left upper lobe. OPERATIVE INDICATION: Coronary disease and unstable angina. OPERATIVE PROCEDURE IN DETAIL: The patient was brought to the operating suite. General anesthesia was obtained. The patient was prepped and draped. Endoscopic saphenous vein harvest was performed of the right lower extremity. Side branches were divided with electrocautery. The vessel was ligated OPERATIVE REPORT [id number] FERNY ASHER JR proximally and distally and removed. The regional vice president surgical sales, Dr. Gifford, performed this part of the case along with preparing the vein graft by tying the side branches and oversewing side branches and varicosities. The use of an patent legal assistant surgeon allowed lessening the general anesthetic time by approximately 45 minutes. Later, leg was closed in 2 layers and wrapped with an elastic wrap. Median sternotomy incision was made. Subcutaneous tissue was divided with electrocautery. Sternum was divided with a saw. Left hemisternum was elevated. Left pleural cavity was entered. Left internal mammary artery was taken down as pedicle graft. Sternal retractor was placed. Pericardium was opened. Heparin was given. Aorta was cannulated. Dual stage venous cannula was inserted. Internal mammary was clipped distally and made ready for anastomosis. Activated clotting time was appropriately elevated. The patient was placed on cardiopulmonary bypass. Sites for distal anastomosis were elected. Antegrade cardioplegia needle was inserted. The patient was cooled. Crossclamp was placed. Cardioplegia was given antegrade and this was repeated at 15- to 20-minute intervals on the completed vein grafts. Distal anastomoses were performed in standard technique. Proximal anastomoses were performed with single cross-clamp technique. Aortic root was de-aired by removing the cross-clamp, venting the aortic root, tying the proximal anastomoses, and restoring the flow in the vein graft. Then, proximal and distal anastomotic sites were inspected for bleeding. The patient resumed a spontaneous rhythm, fully rewarmed, weaned from cardiopulmonary bypass, and was stable. The patient was decannulated. Aortic cannula site was oversewn with a nonpledgeted Prolene suture. Thorough irrigation was undertaken and all grafts lay appropriately. Protamine was given. Drains were placed in mediastinum and both pleural cavities. Single ventricular pacing wire was placed. Pericardial fat was loosely reapproximated in the midline. Left chest was fully evacuated. After draining the left chest, internal mammary harvest site was hemostatic. Sternum was closed with wires. Fascia was closed. Subcutaneous tissue was closed. Skin was closed. Dermabond was used. Needle and sponge counts were reported as correct. The patient was taken to ICU in stable condition. TRANSINT:[id number] Voice Confirmation ID: [id number] DOCUMENT ID: [id number] DAVID MCDONOUGH MD at 1414 CC: JUAN ALBERTO YOUSSEF M.D. and SAMANTHA WONG MD [id number] DICTATION DATE: 05/04/181741 MACHINIST SUPERVISOR OUTSIDE: 05/04/181921 ADM IN [facility] [address] [place] [address]
--- NOTE | 2018-05-05 14:35 | NUR ---
CHEST TUBES REMOVED. 2MG OF MORPHINE GIVEN BEFORE TUBES WERE PULLED. PT IN BED. NO FURTHER NEEDS. WILL CONTINUE TO MONITOR.
--- NOTE | 2018-05-05 16:46 | NUR ---
CLEAR LIQUID TRAY DELIVERED TO ROOM.
--- NOTE | 2018-05-05 17:10 | NUR ---
SPOKE WITH DR. MCDONOUGH REGARDING PT BP BEING ELEVATED AND HIM BEING ON NITRO DRIP. ORDERED 25MG OF LOSARTAN PO X ONE AT THIS TIME. WILL WEAN OFF NITRO TOLERATED.
--- NOTE | 2018-05-05 17:22 | NUR ---
RATES PAIN 8/10 AT INCISION SITE. PERCOCET 10MG TAB GIVEN PER ORDERS. SPOUSE AT BEDSIDE. NO FURTHER NEEDS. WILL CONTINUE TO MONITOR.
--- NOTE | 2018-05-05 18:29 | NUR ---
HAS NOT VOIDED SINCE SINGH CATHETER WAS DC'D. PT ENCOURAGED TO ATTEMPT TO VOID. URINAL GIVEN. WILL CONTINUE TO MONITOR.
--- NOTE | 2018-05-05 18:47 | NUR ---
NITRO DRIP DECREASED TO 7ML/HR AT THIS TIME.
--- NOTE | 2018-05-05 22:08 | NUR ---
1900 REPORT RECEIVED CARE ASSUMED. ASSESSMENT DONE SEE FLOW SHEET. VSS. NO SIGNS OF ACUTE DISTRESS NOTED. WILL CONTINUE TO MONITOR. ICU MONITORS IN PLACE ALARMS SET AND VERIFIED. 2100 MEDS GIVEN PER JUN. VSS. NO SIGNS OF ACUTE DISTRESS NOTED. COMPLETE BED BATH GIVEN. PARTIAL LINEN CHANGE PROVIDED. FAMILY AT BEDSIDE. QUESTIONS ANSWERED.
--- NOTE | 2018-05-05 23:00 | NUR ---
REASSESSMENT DONE SEE FLOW SHEET. VSS. NO SIGNS OF ACUTE DISTRESS NOTED WATER PROVIDED.
[2018-05-06] VITALS (41 sets, daily range): BP systolic 122–158; BP diastolic 63–95
--- NOTE | 2018-05-06 01:00 | NUR ---
PT LAYING IN BED RESTING. INCREASE IN BP NOTED BUT NOT SUTAINED WITH MOVEMENT VSS WILL CONTINUE TO MONITOR.
[2018-05-06 06:09] LABS: BASOPHILS 0.1 % (0-2); EOSINOPHILS 0.1 % (0-7); HEMATOCRIT 31.2 % (42.0-54.0); HEMOGLOBIN 10.5 g/dL (13.5-17.5); IMMATURE GRANULOCYTES 0.5 % (0-5); LYMPHOCYTES 8.6 % (15-50); MCH 31.2 pg (26.0-34.0); MCHC 33.7 g/dL (31.0-37.0); MCV 92.6 fL (80.0-100.0); MEAN PLATELET VOLUME 9.6 fL (7.4-10.4); MONOCYTES 9.9 % (2-11); NEUTROPHILS 80.8 % (40-80); PLATELET COUNT 197 10x3/uL (130-400); RBC 3.37 10x6/uL (4.20-6.10); RDW 13.3 % (11.5-14.5); WBC 16.9 10x3/uL (4.8-10.8)
--- NOTE | 2018-05-06 06:13 | NUR ---
0130 NITRO TITRATED OFF. VSS. WILL CONTINUE TO MONITOR. 0300 REASSESSMENT COMPLETED. VSS. WATER PROVIDED. 0500 PT AMBULATED WITH STEADY GAIT TO CHAIR. VSS. WILL CONTINUE TO MONITOR.
[2018-05-06 06:35] LABS: ALBUMIN 2.5 g/dL (3.4-5.0); ALKALINE PHOSPHATASE 42 U/L (46-116); ALT (SGPT) 28 U/L (10-68); CALC OSMOLALITY 279 mosm/kg (275-300); CALCIUM 7.9 mg/dL (8.5-10.1); CARBON DIOXIDE 29.1 mmol/L (21.0-32.0); CHLORIDE - SERUM 102 mmol/L (98-107); GLUCOSE 137 mg/dL (74-106); MAGNESIUM - SERUM 2.2 mg/dL (1.8-2.4); POTASSIUM - SERUM 4.3 mmol/L (3.5-5.1); PROTEIN - SERUM 5.8 g/dL (6.4-8.2); SODIUM 138 mmol/L (136-145); UREA NITROGEN 17 mg/dL (7-18)
[2018-05-06 06:51] LABS: BILIRUBIN - TOTAL 0.54 mg/dL (0.2-1.3)
[2018-05-06 06:52] LABS: CREATININE - SERUM 0.9 mg/dL (0.6-1.3); eGFR NON AFRICAN AMERICAN > 90 mL/min (90-120)
--- NOTE | 2018-05-06 07:30 | NUR ---
SHIFT REPORT RECEIVED. SITTING UP IN CHAIR. HAS RIJ CVL. BP ABOVE 140. NITRO RESTARTED AT THIS TIME PER ORDERS AT 5MCG/MIN. PAIN AT THIS TIME IS 2/10 AT INCISION SITE. MIDSTERNAL DRESSING CDI. SUBSTERNAL DRESSING CDI. R-LEG INCISION CDI. ROXY HOSE ON BOTH LE. LEGS ELEVATED. ORAL TEMP 98.5. HR 86 SINUS RHYTHM. MELLY DRAIN IN PLACE WITH SEROUS/SANGUINOUS DRAINAGE NOTED. TPM WIRES IN PLACE. SHIFT ASSESSMENT COMPLETED. WILL CONTINUE TO MONITOR.
--- NOTE | 2018-05-06 08:13 | NUR ---
CLEAR LIQUID BREAKFAST TRAY DELIVERED AND SET UP. NO FUTHER NEEDS AT THIS TIME. WILL CONTINUE TO MONITOR.
--- NOTE | 2018-05-06 09:43 | NUR ---
WALKED WITH PHYSICAL THERAPY. SITTING IN CHAIR AT THIS TIME. SPOUSE AT BEDSIDE. PAIN 2/10 AT THIS TIME. AM MEDS GIVEN. ICE WATER PROVIDED. NO FURTHER NEEDS AT THIS TIME. WILL CONTINUE TO MONITOR.
--- NOTE | 2018-05-06 10:50 | NUR ---
Nutrition Follow Up: Pt stated that his appetite is fair. He said that he is tolerating his diet. RD encouraged pt to increase po intake as able and to make staff aware of any food preferences. Diet: AHA PO Intake: 70% x 1 meal Wt gain noted I>O BM: 05/03/18 Labs and meds reviewed Rec continue current diet. Will honor food preferences within diet order. RD following.
--- NOTE | 2018-05-06 11:39 | MORECARE ---
CASE MANAGEMENT DISCHARGE SUMMARY PATIENT: FERNY ASHER JR UNIT: [id number] ADM DATE: 05/02/18 AGE: 57 : 64 SEX: M [facility] AUTHOR: JON DAMON PHYSICIAN: REFERRING PHYSICIAN: SAMANTHA WONG MD DATE OF SERVICE: 05/06/18 Discharge Plan Patient Name: FERNY ASHER Facility: [facility]:[place] : 1960 Planned Disposition: Home Anticipated Discharge Date: Discharge Date: Expected LOS: Initial Reviewer: [email or web address] Initial Review Date: 05/06/2018 Generated: 05/06/18 12:39 pm DCPIA - Discharge Planning Initial Assessment Updated by [email or web address]: Andreina Manning on 05/06/18 11:36 am * Is the patient Alert and Oriented? Yes * How many steps to enter\exit or inside your home? * PCP Rosales in [place] * Pharmacy [facility] * Preadmission Environment Home Alone * ADLs Independent * Equipment None * List name and contact numbers for known caregivers / representatives who currently or will assist patient after discharge: Noel Asher - [facility] - [phone] * Verbal permission to speak to the caregivers and representatives has been obtained from the patient. N/A * Community resources currently utilized None * Additional services required to return to the preadmission environment? No * Can the patient safely return to the preadmission environment? Yes * Has this patient been hospitalized within the prior 30 days at any hospital? No Patient Name: FERNY ASHER Page [phone] at 1139 All edits/amendments must be made on the electronic document DICTATION DATE: 05/06/18 113 SHOE SHINER: MINDA 05/06/18 1138 RPT#: [id number] DC DATE: STATUS: ADM IN [facility] [address] [place] [address] END OF REPORT
--- NOTE | 2018-05-06 11:48 | MORECARE ---
CASE MANAGEMENT DISCHARGE SUMMARY PATIENT: FERNY ASHER JR UNIT: [id number] ADM DATE: 05/02/18 AGE: 57 : 64 SEX: M ROOM/BED: D.06 AUTHOR: MARISOL,DOC PHYSICIAN: REFERRING PHYSICIAN: SAMANTHA WONG MD DATE OF SERVICE: 05/06/18 Discharge Plan Patient Name: FERNY ASHER Facility: [facility]:[place] : 1960 Planned Disposition: Home Anticipated Discharge Date: Discharge Date: Expected LOS: Initial Reviewer: [email or web address] Initial Review Date: 05/06/2018 Generated: 05/06/18 12:48 pm Comments DCP- Discharge Planning Updated by [email or web address]: Andreina Manning on 05/06/18 10:[address] Patient Name: FERNY ASHER Admission Status: ER Accout number: [id number] Admission Date: 05-02-2018 : 1960 Admission Diagnosis:ANGINA PECTORIS, UNSPECIFIED Attending: SAMANTHA WONG Current LOS: 4 Anticipated DC Date: Planned Disposition: Home Primary Insurance: [place] Discharge Planning Comments:CM met with patient at bedside after obtaining verbal consent. Patient states he plans on returning home after discharge. Patient states he lives alone but he thinks he will have someone to stay with him for awhile after discharge. Patient denies any discharge needs at this time. CM will continue to follow and assist as needed for discharge planning / needs. Polishing Machine Operator: Andreina Manning DCPIA - Discharge Planning Initial Assessment Updated by [email or web address]: Andreina Manning on 05/06/18 11:36 am * Is the patient Alert and Oriented? Yes * How many steps to enter\exit or inside your home? * PCP Rosales in [place] * Pharmacy [facility] * Preadmission Environment Home Alone * ADLs Independent * Equipment None * List name and contact numbers for known caregivers / representatives who currently or will assist patient after discharge: Noel Asher - [facility] - [phone] * Verbal permission to speak to the caregivers and representatives has been obtained from the patient. N/A * Community resources currently utilized None * Additional services required to return to the preadmission environment? No * Can the patient safely return to the preadmission environment? Yes * Has this patient been hospitalized within the prior 30 days at any hospital? No Last DP export: 05/06/18 10:39 a Patient Name: FERNY ASHER Page [phone] at 1148 All edits/amendments must be made on the electronic document DICTATION DATE: 05/06/181146 QUICK PRINT OPERATOR: MINDA 05/06/181146 RPT#: [id number] DC DATE: STATUS: ADM IN [facility] [address] [place] [address] END OF REPORT
--- NOTE | 2018-05-06 11:50 | NUR ---
NITRO DECREASED TO 5MCG/MIN. EATING LUNCH AT THIS TIME. WILL CONTINUE TO MONITOR.
--- NOTE | 2018-05-06 12:16 | NUR ---
SUBSTERNAL DRESSING CHANGED PER ORDERS. BIO PATCH PLACED UNDER TPM WIRES. PIVODINE OINTMENT APPLIED TO PREVIOUS CT INSERTION SITES AND AROUND MELLY DRAIN INSERTION SITE. R-LEG INSICION SITES PROTECTED WITH 4X4S. NO FURTHER NEEDS AT THIS TIME. VISITOR AT BEDSIDE. WILL CONTINUE TO MONITOR.
--- NOTE | 2018-05-06 12:58 | NUR ---
NITROGLYCERIN DRIP OFF AT THIS TIME. BP 122/73. WILL CONTINUE TO MONITOR.
--- NOTE | 2018-05-06 14:06 | NUR ---
AMBULATED TO BATHROOM. ATTEMPTED TO HAVE BM WITH NO SUCCESS. VOIDED AT THIS TIME. ASSISTED BACK TO CHAIR. ICE WATER PROVIDED. NO FURTHER NEEDS. WILL CONTINUE TO MONITOR.
--- NOTE | 2018-05-06 14:30 | NUR ---
AMBULATED ABOUT 150FT WITH PHYSICAL THERAPY.
--- NOTE | 2018-05-06 15:13 | NUR ---
RE-ASSESSMENT COMPLETED. RESTING IN CHAIR. REPORT PAIN 4/10 AT INCISION. WAS AGRAVATED WITH HE COUGHED. PERCOCET 10MG TAB GIVEN PER ORDERS. WILL CONTINUE TO MONITOR.
--- NOTE | 2018-05-06 16:35 | NUR ---
MELLY HITCHCOCK DC'Logan TODAY BY DR. MCDONOUGH'S NURSE
--- NOTE | 2018-05-06 18:26 | NUR ---
RIJ CVL DRESSING PEELING OFF. DRESSING CHANGED AT THIS TIME USING CVL DRESSING KIT. PT RESTING COMFORTABY. HAS NOT ATE HIS DINNER. DINNER TRAY LEFT IN ROOM PER HIS REQUEST. DENIES FURTHER NEEDS AT THIS TIME. WILL CONTINUE TO MONITOR.
--- NOTE | 2018-05-06 20:01 | NUR ---
1899 - Report recieved. 1924 - Shift assessment complete, please see flow sheets for details. Patient sitting up in chair. Alert and oriented x4, denies pain/needs now. Lungs clear, diminished in lower lobes. 2L NC on and tolerating well. Midsternal dressing CDI. Substernal dressing CDI. S1S2 heard, RRR noted on CM, PPP. BS active x4. Moves all extremeties. No edema to note. Chair locked, call light in reach. VSS, will CPOC.
--- NOTE | 2018-05-06 23:19 | NUR ---
2100 - Still up in chair. Denies pain/needs. Tolerated PO meds well. VSS, chair locked, call light in reach. Will CPOC.
--- NOTE | 2018-05-06 23:22 | NUR ---
2300 - Reassessment complete, please see flow sheets for details. No acute changes from previous assessment to note. Requested pain meds, these were given per orders. Back to bed with little assist. Gait steady. Tolerated activity well. VSS, bed low and locked, call light in reach. Will CPOC.
[2018-05-07] VITALS (50 sets, daily range): BP systolic 116–169; BP diastolic 52–93
--- NOTE | 2018-05-07 00:41 | NUR ---
Resting quietly, VSS, bed low and locked, call light in reach. Will CPOC.
--- NOTE | 2018-05-07 01:04 | NUR ---
BP ELEVATED, STARTED NITRO PER ORDERS. WILL TITRATE TO EFFECT.
--- NOTE | 2018-05-07 03:00 | NUR ---
Reassessment complete, please see flow sheets for details. No acute changes from previous assessment to note. Denies pain, states needs to get up to bathroom, assisted little with this, tolerated activity well and gait steady. Titrating Nitro to effect. Back to bed, bed low and locked, call light in reach. VSS, will CPOC.
--- NOTE | 2018-05-07 05:00 | NUR ---
Resting, no S&S acute distress to note. VSS, bed low and locked, call light in reach. Will CPOC.
[2018-05-07 06:35] LABS: BASOPHILS 0.1 % (0-2); EOSINOPHILS 0.5 % (0-7); HEMATOCRIT 28.2 % (42.0-54.0); HEMOGLOBIN 9.4 g/dL (13.5-17.5); IMMATURE GRANULOCYTES 0.5 % (0-5); LYMPHOCYTES 15.2 % (15-50); MCH 31.1 pg (26.0-34.0); MCHC 33.3 g/dL (31.0-37.0); MCV 93.4 fL (80.0-100.0); MONOCYTES 10.5 % (2-11); NEUTROPHILS 73.2 % (40-80); PLATELET COUNT 185 10x3/uL (130-400); RBC 3.02 10x6/uL (4.20-6.10); RDW 13.1 % (11.5-14.5)
[2018-05-07 06:38] LABS: WBC 11.1 10x3/uL (4.8-10.8)
[2018-05-07 07:11] LABS: ALBUMIN 2.3 g/dL (3.4-5.0); ALKALINE PHOSPHATASE 46 U/L (46-116); ALT (SGPT) 30 U/L (10-68); BILIRUBIN - TOTAL 0.59 mg/dL (0.2-1.3); CALC OSMOLALITY 273 mosm/kg (275-300); CALCIUM 7.8 mg/dL (8.5-10.1); CARBON DIOXIDE 28.8 mmol/L (21.0-32.0); CHLORIDE - SERUM 101 mmol/L (98-107); CREATININE - SERUM 0.8 mg/dL (0.6-1.3); GLUCOSE 118 mg/dL (74-106); POTASSIUM - SERUM 3.9 mmol/L (3.5-5.1); PROTEIN - SERUM 5.7 g/dL (6.4-8.2); SODIUM 136 mmol/L (136-145); UREA NITROGEN 15 mg/dL (7-18); eGFR NON AFRICAN AMERICAN > 90 mL/min (90-120)
--- NOTE | 2018-05-07 07:30 | NUR ---
SHIFT REPORT RECEIVED. PT A&OX4. REPORTING PAIN ON HIS CHEST AT INCISION SITE AND ON HIS BACK 09/02. ASSITED TO SIDE OF BED. RIJ WITH NITRO INFUSING AT 20ML/HR. ON 2L OF O2 VIA NC. HR SLIGHTLY TACHYCARDIC 102. MIDSTERNAL DRESSING CDI. SUBSTERNAL DRESSING CDI. SHIFT ASSESSMENT COMPLETED. WILL CONTINUE TO MONITOR.
--- NOTE | 2018-05-07 07:37 | NUR ---
A&O X 4. ON SIDE OF BED. PAIN 5/10 ON CHEST AND BACK SIDE. PERCOCET 10MG TAB GIVEN.
--- NOTE | 2018-05-07 08:21 | NUR ---
POTASSIUM 3.9. SPOKE WITH DR. MCDONOUGH TO SEE IF HE WANTED TO CONTINUE WITH POTASSIUM PROTOCOL AND HE SAID NO. HE WILL ORDER SOME ORAL POTASSIUM.
--- NOTE | 2018-05-07 10:21 | NUR ---
NITRO TITRATED DOWN PER PROTOCOL. TURNED OFF AT 0930. BP IN 130S. AM MEDS GIVENS. PT UP IN CHAIR. ATE ALL OF HIS BREAKFAST. SUBSTERNAL DRESSING CHANGED PER ORDERS. TMP WIRES IN PLACE. NO FURTHER NEEDS. WILL CONTINUE TO MONITOR.
--- NOTE | 2018-05-07 11:00 | NUR ---
RE-ASSESSMENT COMPLETED. NO ACUTE CHANGES FROM PREVIOUS ASSESSMENT. HAS BEEN OFF NITRO SINCE 929. BP 117/58. RESTING COMFORTABLY IN CHAIR. DENIES FURTHER NEEDS AT THIS TIME. WILL CONTINUE TO MONITOR.
--- NOTE | 2018-05-07 12:00 | NUR ---
20G PIV PLACED ON CRUZ. WILL DC CVL AFTER LUNCH.
--- NOTE | 2018-05-07 14:34 | NUR ---
CVL DC'D AT THIS TIME PER ORDERS. RESTING COMFORTABLY IN BED. PERCOCET 10MG GIVEN A FEW MINUTES EARLIER. RATED PAIN 5/10 ON CHEST INCISION SITE. NO FURTHER NEEDS. WILL CONTINUE TO MONITOR.
--- NOTE | 2018-05-07 15:00 | NUR ---
RE-ASSESSMENT COMPLETED. PT RESTING IN BED. ORAL TEMP 100.2. IS BEST EFFORT 750. PT HAS BEEN USING INSENTIVE SPIROMETER THROUGH OUT THE DAY BUT NEEDS CONSTANT ENCOURAGEMENT TO GET IT HIGHER THAN 750. PT HAS BEEN COUGHING UP TRUJILLO SPUTUM. DENIES FURTHER NEEDS AT THIS TIME. WILL CONTINUE TO MONITOR.
--- NOTE | 2018-05-07 17:57 | NUR ---
AMBULATED TO RESTROOM INDEPENDENTLY. EATING DINNER AT THIS TIME.
--- NOTE | 2018-05-07 18:15 | NUR ---
BP ELEVATED AT THIS TIME. SITTING IN CHAIR EATING DINNER. FREQUENT PRODUCTIVE COUGH NOTED. REMINDED PT TO CONTINUE WITH HIS IS EXERCISES. BEST EFFERT AT THIS TIME BETWEEN 750 AND 1000. WILL CONTINUE TO MONITOR.
--- NOTE | 2018-05-07 19:00 | NUR ---
Report recieved, shift assessment complete, please see flow sheets for details. Patient in bed, awake and alert x4. Denies needs ATT, states in some pain but tolerable for now, offered pain meds with PM meds, this was accepted, will provided. Lungs clear in upper lobes and diminished in lower lobes, on room air. S1S2 heard, RRR on CM, PPP. Midsternal and substernal dressings CDI. BS active x4, denies BM today, will give reglan per orders. VSS, bed low and locked, call light in reach. Will CPOC.
--- NOTE | 2018-05-07 21:00 | NUR ---
Up to side of bed, visitors in room. Patient denies needs. VSS, will CPOC.
--- NOTE | 2018-05-07 23:00 | NUR ---
Reassessment complete, please see flow sheets for details. Was up to restroom, reports BM. Denies pain/needs. No acute changes from previous assessment to note. Hemodynamically stabe ATT. Bed low and locked, call light in reach. Will CPOC.
[2018-05-08] VITALS (22 sets, daily range): BP systolic 115–166; BP diastolic 62–92
--- NOTE | 2018-05-08 01:01 | NUR ---
Resting quietly. Hemodynamically stable now, bed low and locked, call light in reach. Will CPOC.
--- NOTE | 2018-05-08 03:00 | NUR ---
Reassessment complete, please see flow sheet for details. No acute changes from previous assessment to note. Dressing change to substernal incisions provided. Up to restroom, reported BM and urine out. Sitting at side of bed. Hemodynamically stable. Bed low and locked, call light in reach. Will CPOC.
--- NOTE | 2018-05-08 05:00 | NUR ---
Offered bed bath supplies, patient did self care. Assisted with removing TEDs and cleaning lower legs. ROXY's replaced. Tolerated activity well. Up in chair, asked for coffee, this was provided. Denies pain/needs. Will continue to monitor.
[2018-05-08 06:06] LABS: HEMATOCRIT 30.3 % (42.0-54.0); MCH 30.8 pg (26.0-34.0); MCV 93.2 fL (80.0-100.0); MEAN PLATELET VOLUME 9.7 fL (7.4-10.4); RBC 3.25 10x6/uL (4.20-6.10); RDW 12.9 % (11.5-14.5); WBC 9.2 10x3/uL (4.8-10.8)
--- NOTE | 2018-05-08 06:31 | NUR ---
BP slightly elevated, adjusted BP cuff and inquired about pain, patient stated he was having incisional pain 4/10, gave pain meds per orders, will continue to monitor.
[2018-05-08 06:49] LABS: CALC OSMOLALITY 275 mosm/kg (275-300); CARBON DIOXIDE 28.9 mmol/L (21.0-32.0); CHLORIDE - SERUM 100 mmol/L (98-107); CREATININE - SERUM 0.9 mg/dL (0.6-1.3); GLUCOSE 115 mg/dL (74-106); POTASSIUM - SERUM 4.1 mmol/L (3.5-5.1); SODIUM 137 mmol/L (136-145); UREA NITROGEN 14 mg/dL (7-18); eGFR NON AFRICAN AMERICAN > 90 mL/min (90-120)
[2018-05-08 06:50] LABS: CALCIUM 8.5 mg/dL (8.5-10.1)
--- NOTE | 2018-05-08 07:00 | NUR ---
REPORT RECEIVED FROM THE OFF GOING RN. SEE ASSESSMENT IN THE PTS FLOW SHEET. PT LYING IN BED. VSS. NSR ON THE MONITOR. WAS GOING TO ASSIST THE PT OOB AND INTO HIS CHAIR, AND THE PT REFUSED SAYING THAT HE HAS BEEN UP WALKING IN HIS ROOM FOR MAJORITY OF THE NIGHT. MEAL TRAY PROVIDED AND PLACED ON THE PTS BEDSIDE. ENCOURAGED TCDB. PT INSTRUCTED TO USE HIS IS 10X'S/H. PT PULLED 1250 ON HIS IS. PT DENIES PAIN AT THIS TIME. CALL LIGHT IN REACH. WILL CONT POC.
--- NOTE | 2018-05-08 08:30 | NUR ---
PT GOT OOB AND INTO HIS BEDSIDE CHAIR.
--- NOTE | 2018-05-08 08:51 | NUR ---
PHYSICAL THEARPY AMBULATING WITH THE PT. PT AMBULATED 500 FEET WITH A NORMAL STEADY GAIT. PHYSICAL THEARPY STATED HE DID EXCELENT. ANNA LIGHT IN REACH. WILL CONT POC.
--- NOTE | 2018-05-08 14:35 | NUR ---
PT AMBULATING IN THE UNIT BY HIMSELF. PT ON THE LAWN MOWER SHARPENER. HEART RATE NSR. PT TOLERATING WELL.
--- NOTE | 2018-05-08 18:06 | NUR ---
PT C/O ABD PAIN. PRN OXYCODONE GIVEN.
[2018-05-09] VITALS (16 sets, daily range): BP systolic 111–157; BP diastolic 67–94
[2018-05-09 07:30] LABS: HEMOGLOBIN 9.8 g/dL (13.5-17.5); MCH 30.6 pg (26.0-34.0); MCHC 32.7 g/dL (31.0-37.0); MCV 93.8 fL (80.0-100.0); MEAN PLATELET VOLUME 9.6 fL (7.4-10.4); RBC 3.2 10x6/uL (4.20-6.10); RDW 13.1 % (11.5-14.5); WBC 7.6 10x3/uL (4.8-10.8)
[2018-05-09 07:45] LABS: CALC OSMOLALITY 273 mosm/kg (275-300); CALCIUM 8.2 mg/dL (8.5-10.1); CARBON DIOXIDE 30.7 mmol/L (21.0-32.0); CHLORIDE - SERUM 101 mmol/L (98-107); GLUCOSE 105 mg/dL (74-106); POTASSIUM - SERUM 4.1 mmol/L (3.5-5.1); SODIUM 137 mmol/L (136-145); UREA NITROGEN 12 mg/dL (7-18); eGFR NON AFRICAN AMERICAN 82 mL/min (90-120)
--- NOTE | 2018-05-09 08:10 | NUR ---
REPORT RECEIVED. SHIFT ASSESSMENT COMPLETE. PT GIVEN BREAKFAST TRAY. DENIES ADDITIONAL NEEDS. MORNING MEDICATIONS GIVEN. PAIN PILL GIVEN REQUESTED. C/O HAVING SPASMS IN UPPER ABDOMEN.
--- NOTE | 2018-05-09 13:21 | NUR ---
CONFIRMED WITH PT PREFERRED PHARMACY IS [facility].
[2018-05-09] MEDS ORDERED: COZAAR50 MG PO (14:19)
[2018-05-09] MEDS ORDERED: PLAVIX75 MG PO (14:19)
[2018-05-09] MEDS ORDERED: AMIODARONE HCL200 MG PO (14:20)
[2018-05-09] MEDS ORDERED: HYDRALAZINE HCL25 MG PO (14:21)
[2018-05-09] MEDS ORDERED: NORVASC5 MG PO (14:21)
[2018-05-09] MEDS ORDERED: LIPITOR10 MG PO (14:21)
[2018-05-09] MEDS ORDERED: LOPRESSOR25 MG PO (14:22)
[2018-05-09] MEDS ORDERED: ASPIRIN EC81 M1 PO (14:22)
[2018-05-09] MEDS ORDERED: K-TAB10 MEQ PO (14:23)
[2018-05-09] MEDS ORDERED: COLACE100 MG PO (14:24)
[2018-05-09] MEDS ORDERED: OXYCODONE-APAP1 TAB PO (14:26)
--- NOTE | 2018-05-09 17:05 | NUR ---
DISCHARGE INTRUCTIONS REVIEWED WITH PATIENT AND HIS GIRLFRIEND. LUQ PIV DC'D WITH CATHETER TIP INTACT. PERCOCET 10MG TAB GIVEN BEFORE DISCHARGE. PT WANTED TO BE COVERED WHILE HE WAITED FOR HIS PRESCRIPTION TO BE FILLED. PERSONAL BELONINGS SENT WITH PT. AMBULATED TO PERSONAL VEHICLE.
--- NOTE | 2018-05-09 17:36 | MORECARE ---
CASE MANAGEMENT DISCHARGE SUMMARY PATIENT: FERNY ASHER JR UNIT: [id number] ADM DATE: 05/02/18 AGE: 57 : [birth year] SEX: M ROOM/BED: D.06 AUTHOR: MARISOL,DOC PHYSICIAN: REFERRING PHYSICIAN: SAMANTHA WONG MD DATE OF SERVICE: 05/09/18 Discharge Plan Patient Name: FERNY ASHER Facility: [facility]:[place] : 1960 Planned Disposition: Home Anticipated Discharge Date: Discharge Date: 05/09/2018 Expected LOS: Initial Reviewer: [email or web address] Initial Review Date: 05/06/2018 Generated: 05/09/18 6:35 pm Comments DCP- Discharge Planning Updated by [email or web address]: Andreina Manning on 05/06/18 10:[address] Patient Name: FERNY ASHER Admission Status: ER Accout number: [id number] Admission Date: 05-02-2018 : 1960 Admission Diagnosis:ANGINA PECTORIS, UNSPECIFIED Attending: SAMANTHA WONG Current LOS: 4 Anticipated DC Date: Planned Disposition: Home Primary Insurance: MEDICAID [place] PENDING Discharge Planning Comments:CM met with patient at bedside after obtaining verbal consent. Patient states he plans on returning home after discharge. Patient states he lives alone but he thinks he will have someone to stay with him for awhile after discharge. Patient denies any discharge needs at this time. CM will continue to follow and assist as needed for discharge planning / needs. Kennel Manager Dog Track: Andreina Manning DCPIA - Discharge Planning Initial Assessment Updated by [email or web address]: Andreina Manning on 05/06/18 11:36 am * Is the patient Alert and Oriented? Yes * How many steps to enter\exit or inside your home? * PCP [facility] in [place] * Pharmacy [facility] * Preadmission Environment Home Alone * ADLs Independent * Equipment None * List name and contact numbers for known caregivers / representatives who currently or will assist patient after discharge: Noel Asher - jose guadalupe - [phone] * Verbal permission to speak to the caregivers and representatives has been obtained from the patient. N/A * Community resources currently utilized None * Additional services required to return to the preadmission environment? No * Can the patient safely return to the preadmission environment? Yes * Has this patient been hospitalized within the prior 30 days at any hospital? No Last DP export: 05/06/18 10:48 a Patient Name: FERNY ASHER Page [id number] at 1736 All edits/amendments must be made on the electronic document DICTATION DATE: 05/09/181734 MANUFACTURING DEVELOPMENT ENGINEER: MINDA 05/09/181734 RPT#: [id number] DC DATE:05/09/18 STATUS: DIS IN [facility] [address] [place] [address] END OF REPORT
--- NOTE | 2018-05-11 16:39 | TEE ---
PATIENT:FERNY ASHER JR MEDICAL RECORD: [id number] LOCATION:[place] [address] AGE OF PATIENT: 57 ADMISSION DATE: 05/02/18 SEX: M REFERRING PHYSICIAN: INTERPRETING PHYSICIAN: HORACIO DAIGLE MD TRANSESOPHAGEAL ECHOCARDIOGRAM Date: 05/04/18 MAG CHARGE Y INDICATIONS: CABG PREMEDICATIONS: PATIENT'S RESPONSE PROCEDURE DOPPLER MEASUREMENTS: LVIT LA PA RA LVOT 89 RVOT Asc. Ao 135 AV Gradient Peak 7.32 AV Mean 3.58 AV Area 2.2 MV Gradient Peak 3.75 MV Mean 1.53 MV Area INTERPRETATION: LVd: 3.7 cm LVs: 2.7 cm Doppler: 2-D: COLOR FLOW DOPPLER NORMAL SALINE STUDY: MISCELLANOUS: DIAGNOSIS: PLAN: Radiation Engineer:Chrissy Flores Licensed Veterinary Technician: Maximus VERGARA COMMENTS: DATE OF SERVICE: 05/04/2018 PROCEDURE: Transesophageal echo evaluation of valvular structures during bypass surgery. FINDINGS: 1. Left ventricular chamber size is within normal limits. Left ventricular systolic function is normal. Overall ejection fraction is estimated at 50%. 2. Left atrium, right atrium, and right ventricle chamber sizes are within TRANSESOPHAGEAL ECHOCARDIOGRAM REPORT [id number] FERNY ASHER normal limits. 3. Valvular structures have normal structure and motion. 4. Doppler interrogation reveals only trace mitral regurgitation, no other valvular insufficiency or stenosis. 5. No evidence of pericardial effusion or left ventricular thrombus. TRANSINT:[id number] Voice Confirmation ID: [id number] DOCUMENT ID: [id number] at [id number] CC: [id number] DICTATION DATE: 05/10/18 1226 PRINCIPAL SYSTEMS ENGINEER: 05/11/18 0044 DIS IN 05/09/18 [place] [address]
== END 2018-05-09 17:07 | disposition home or self-care (01) | DRG 234 ==
LOC: D.ER 13:40 → D.M2 17:53 → OBSVTIME 17:53 → D.M2 17:53 → D.CVICU 05-02 17:02 → D.M2 05-02 17:02 → D.CVICU 05-03 20:14
PROVIDERS: Emergency Medicine; Family Medicine; Internal Medicine Cardiovascular Disease; Thoracic Surgery (Cardiothoracic Vascular Surgery); ADMIT Internal Medicine Nephrology
PROC: B2111ZZ Fluoroscopy of Multiple Coronary Arteries using Low Osmolar Contrast (ICD-10-PCS; 2018-05-02)
PROC: B2151ZZ Fluoroscopy of Left Heart using Low Osmolar Contrast (ICD-10-PCS; 2018-05-02)
PROC: 4A023N7 Measurement of Cardiac Sampling and Pressure, Left Heart, Percutaneous Approach (ICD-10-PCS; 2018-05-02)
PROC: 021309W Bypass Coronary Artery, Four or More Arteries from Aorta with Autologous Venous Tissue, Open Approach (ICD-10-PCS; 2018-05-04)
PROC: 06BP4ZZ Excision of Right Saphenous Vein, Percutaneous Endoscopic Approach (ICD-10-PCS; 2018-05-04)
PROC: 5A1221Z Performance of Cardiac Output, Continuous (ICD-10-PCS; 2018-05-04)
PROC: B24BZZ4 Ultrasonography of Heart with Aorta, Transesophageal (ICD-10-PCS; 2018-05-04)
PROC: 02100Z9 Bypass Coronary Artery, One Artery from Left Internal Mammary, Open Approach (ICD-10-PCS; principal; 2018-05-04 12:00)
DX: I25.110 Atherosclerotic heart disease of native coronary artery with unstable angina pectoris (principal); F17.203 Nicotine dependence unspecified, with withdrawal; I10 Essential (primary) hypertension; F10.10 Alcohol abuse, uncomplicated; R06.00 Dyspnea, unspecified

== ENCOUNTER 2018-05-30 12:06 | Emergency (ER) | payer MEDICAID ==
[~2018-05-30] VITALS: Ht 172.7 cm; Wt 68.2 kg
[~2018-05-30 12:06] MED LIST: AMIODARONE HCL200 MG PO; ASPIRIN EC81 M1 PO; COLACE100 MG PO; COZAAR100 MG PO; COZAAR50 MG PO; HYDRALAZINE HCL25 MG PO; K-TAB10 MEQ PO; LIPITOR10 MG PO; LOPRESSOR25 MG PO; NORVASC5 MG PO; OXYCODONE-APAP1 TAB PO; PLAVIX75 MG PO
[2018-05-30 12:13] VITALS: Ht 172.7 cm; Wt 68.2 kg
[2018-05-30] MEDS ORDERED: HYDROCODON-ACE1 EAC7 PO (14:03)
[2018-05-30 14:29] VITALS: BP 146/78
== END 2018-05-30 14:26 | disposition home or self-care (01) ==
LOC: D.ER 12:06
DX: M79.661 Pain in right lower leg (principal); I25.810 Atherosclerosis of coronary artery bypass graft(s) without angina pectoris; I10 Essential (primary) hypertension

== ENCOUNTER → 2018-06-01 09:18 | Outpatient (CLI) | payer MEDICAID ==
[2018-05-30 12:13] VITALS: BMI 22.8
[~2018-06-01 09:18] MED LIST changes: +HYDROCODON-ACE1 EAC7 PO
[2018-06-01 09:50] LABS: HEMATOCRIT 37.5 % (42.0-54.0); HEMOGLOBIN 12.2 g/dL (13.5-17.5); MCH 30.1 pg (26.0-34.0); MCHC 32.5 g/dL (31.0-37.0); MCV 92.6 fL (80.0-100.0); MEAN PLATELET VOLUME 8.7 fL (7.4-10.4); RBC 4.05 10x6/uL (4.20-6.10); RDW 13.4 % (11.5-14.5); WBC 10.1 10x3/uL (4.8-10.8)
[2018-06-01 10:07] LABS: ANION GAP 13.7 mmol/L (8-16); BILIRUBIN - TOTAL 0.24 mg/dL (0.2-1.3); CALCIUM 8.6 mg/dL (8.5-10.1); CARBON DIOXIDE 28.5 mmol/L (21.0-32.0); CREATININE - SERUM 1.2 mg/dL (0.6-1.3); POTASSIUM - SERUM 4.2 mmol/L (3.5-5.1); PROTEIN - SERUM 6.9 g/dL (6.4-8.2)
== END | disposition home or self-care (01) ==
LOC: D.RAD 09:18
PROVIDERS: Thoracic Surgery (Cardiothoracic Vascular Surgery)
DX: D64.9 Anemia, unspecified (principal); J91.8 Pleural effusion in other conditions classified elsewhere

== ENCOUNTER 2018-10-05 14:13 | Emergency (ER) | payer MEDICAID ==
[~2018-10-05] VITALS: Ht 172.7 cm; Wt 70.9 kg
[2018-10-05 14:24] VITALS: BP 168/93; Ht 172.7 cm; Wt 70.9 kg
[2018-10-05 15:02] LABS: BASOPHILS 0.1 % (0-2); EOSINOPHILS 1.2 % (0-7); HEMATOCRIT 45.3 % (42.0-54.0); HEMOGLOBIN 15.6 g/dL (13.5-17.5); IMMATURE GRANULOCYTES 0.7 % (0-5); LYMPHOCYTES 28.8 % (15-50); MCH 32.2 pg (26.0-34.0); MCHC 34.4 g/dL (31.0-37.0); MCV 93.6 fL (80.0-100.0); MEAN PLATELET VOLUME 9.7 fL (7.4-10.4); MONOCYTES 10.1 % (2-11); NEUTROPHILS 59.1 % (40-80); RBC 4.84 10x6/uL (4.20-6.10); RDW 13.7 % (11.5-14.5)
[2018-10-05 15:07] LABS: PLATELET COUNT 179 10x3/uL (130-400)
[2018-10-05 15:16] LABS: APTT 22.9 SECONDS (22.8-39.4); INR 0.98 (0.85-1.17); PROTIME 12.5 SECONDS (11.6-15.0)
[2018-10-05 15:40] LABS: ALBUMIN 3.7 g/dL (3.4-5.0); ALKALINE PHOSPHATASE 95 U/L (46-116); ALT (SGPT) 43 U/L (10-68); BILIRUBIN - TOTAL 0.41 mg/dL (0.2-1.3); CALC OSMOLALITY 273 mosm/kg (275-300); CALCIUM 9.2 mg/dL (8.5-10.1); CARBON DIOXIDE 28.5 mmol/L (21.0-32.0); CHLORIDE - SERUM 102 mmol/L (98-107); CREATININE - SERUM 0.9 mg/dL (0.6-1.3); GLUCOSE 87 mg/dL (74-106); POTASSIUM - SERUM 4.3 mmol/L (3.5-5.1); PROTEIN - SERUM 7.4 g/dL (6.4-8.2); SODIUM 138 mmol/L (136-145); UREA NITROGEN 11 mg/dL (7-18); eGFR NON AFRICAN AMERICAN > 90 mL/min (90-120)
[2018-10-05 15:54] LABS: CKMB 1.6 U/L (0.0-3.6); CREATINE KINASE 59 UL (21-232); TROPONIN-I 0.019 ng/mL (0.000-0.060)
== END 2018-10-05 17:20 | disposition left against medical advice (07) ==
LOC: D.ER 14:13
PROVIDERS: Family Medicine
DX: R42 Dizziness and giddiness (principal); R51 Headache; R07.9 Chest pain, unspecified

== ENCOUNTER 2019-07-10 16:49 | Emergency (ER) | payer MEDICAID ==
[~2019-07-10] VITALS: Ht 172.7 cm; Wt 77.3 kg
[2019-07-10 16:58] VITALS: Ht 172.7 cm; Wt 77.3 kg
[2019-07-10 18:07] LABS: BASOPHILS 0.1 % (0-2); EOSINOPHILS 1.7 % (0-7); HEMATOCRIT 42.9 % (42.0-54.0); HEMOGLOBIN 14.4 g/dL (13.5-17.5); IMMATURE GRANULOCYTES 0.1 % (0-5); LYMPHOCYTES 25.8 % (15-50); MCH 30.7 pg (26.0-34.0); MCHC 33.6 g/dL (31.0-37.0); MCV 91.5 fL (80.0-100.0); MEAN PLATELET VOLUME 9.5 fL (7.4-10.4); MONOCYTES 5.5 % (2-11); NEUTROPHILS 66.8 % (40-80); PLATELET COUNT 185 10x3/uL (130-400); RBC 4.69 10x6/uL (4.20-6.10); RDW 12.6 % (11.5-14.5); WBC 8.4 10x3/uL (4.8-10.8)
[2019-07-10 18:20] LABS: INR 1.02 (0.85-1.17); PROTIME 13.3 SECONDS (11.6-15.0)
[2019-07-10 18:22] LABS: CALC OSMOLALITY 273 mosm/kg (275-300); CALCIUM 8.6 mg/dL (8.5-10.1); CARBON DIOXIDE 31.8 mmol/L (21.0-32.0); CHLORIDE - SERUM 100 mmol/L (98-107); CREATININE - SERUM 1.1 mg/dL (0.6-1.3); POTASSIUM - SERUM 3.4 mmol/L (3.5-5.1); SODIUM 135 mmol/L (136-145); UREA NITROGEN 15 mg/dL (7-18); eGFR NON AFRICAN AMERICAN 73 mL/min (90-120)
[2019-07-10 18:23] LABS: GLUCOSE 145 mg/dL (74-106)
[2019-07-10 18:36] LABS: ALBUMIN 3.3 g/dL (3.4-5.0); ALKALINE PHOSPHATASE 77 U/L (30-120); ALT (SGPT) 17 U/L (10-68); BILIRUBIN - TOTAL 0.53 mg/dL (0.2-1.3); CKMB 1.1 U/L (0.0-3.6); CREATINE KINASE 75 UL (21-232); PROTEIN - SERUM 7.1 g/dL (6.4-8.2)
[2019-07-10 18:41] LABS: TROPONIN-I < 0.017 ng/mL (0.000-0.060)
[2019-07-10] MEDS ORDERED: TRIAMTERENE-HC1 EAC6 PO (18:46)
[2019-07-10 19:01] VITALS: BP 176/99
== END 2019-07-10 19:02 | disposition home or self-care (01) ==
LOC: D.ER 16:49
PROVIDERS: Family Medicine
DX: I10 Essential (primary) hypertension (principal); R42 Dizziness and giddiness; Z91.19 Patient's noncompliance with other medical treatment and regimen; Z95.1 Presence of aortocoronary bypass graft; Z72.0 Tobacco use; R07.89 Other chest pain; W19.XXXA Unspecified fall, initial encounter; Y93.9 Activity, unspecified; Y92.9 Unspecified place or not applicable

== ENCOUNTER 2019-08-15 20:53 | Inpatient (IN) | payer MEDICAID ==
[~2019-08-15] VITALS: Ht 172.7 cm; Wt 81.6 kg
--- NOTE | ~2019-08-15 | HEMODYNAMI ---
PATIENT:FERNY ASHER JR MEDICAL RECORD: [id number] : 64 LOCATION:[facility] [address] [facility]# [id number] ADMISSION DATE: 08/15/19 Generatedon:08/16/201911:48 Patient name: FERNY ASHER Patient #: [id number] SSN: [id number] : 1960 Date of study: 08/16/2019 Page: Of Hemodynamic Procedure Report Patient Data Patient Demographics Procedure consent was obtained First Name: FERNY Gender: Male Last Name: LAKESHIA Suffix: Jr Tinsley Initial: LANG : 1960 Patient #: [id number] Age: 58 year(s) Race: SSN: [id number] Additional ID: [id number] Contact details Address: [address] [place] [address] State: [place] City: [facility] Zip code: [address] Past Medical History Allergies: No known allergies Admission Admission Data Admission Date: 08/15/2019 Admission Time: 21:57 Arrival Date: 08/16/2019 Arrival Time: 0:00 Admit Source: Other Insurance Payor: Private Room #: D.2115 health insurance [facility] #: [id number] Height (in.): 60 BSA: 1.79 (m2) Height (cm.): 152.4 BMI: 35.22 (kg/m2) Weight (lbs.): 180.36 Weight (kg.): 81.81 Lab Results Lab Result Date: 08/16/2019 Lab Result Time: 0:00 Biochemistry Name Units Result Min Max BUN mg/dl 12 --(-*--)-- 7 18 Creatinine mg/dl 1.2 --(---*)-- 0.6 1.3 eGFR ml/min 66 *-(----)-- 90 120 NONAFRICAN CBC Name Units Result Min Max Hemoglobin g/dl 15.1 --(-*--)-- 13.5 17.5 Procedure Procedure Types Cath Procedure Diagnostic Procedure [facility] w/Coronaries w/Grafts Sedation Charges Moderate Sedation up to 15 minutes Procedure Description Procedure Date Procedure Date: 08/16/2019 Procedure Start Time: 11:28 Procedure End Time: 11:43 Procedure Staff Name Function Chad Multani MD Performing Physician Rylie Betancourt RT Monitor Lakeshia Perez RT Scrub Austin Moe RN Nurse Procedure Data Cath Procedure Fluoroscopy Diagnostic fluoroscopy Total fluoroscopy Time: 3.3 time: 3.3 min min Diagnostic fluoroscopy Total fluoroscopy dose: 836 dose: 836 mGy mGy Contrast Material Contrast Material Type Amount (ml) Isovue 300 100 Entry Location Entry Primary Successful Side Size Upsize Upsize Entry Closure Succes sful Closure Location (Fr) 1 (Fr) 2 (Fr) Remarks Device Remarks Femoral Right 5 Fr Exoseal artery Estimated blood loss: 10 ml Diagnostic catheters Device Type Used For End Catheter Placement MULTIPACK JL 4.0 5Fr Procedure catheter MULTIPACK 3DRC 5Fr Procedure catheter MULTIPACK Pigtail 5 Fr Ventriculography catheter DIAGNOSTIC AR1 MOD 5Fr Procedure catheter ([id number]) Procedure Complications No complications Procedure Medications Medication Administration Route Dosage Oxygen etCO2 Nasal cannula 2 l/min Lidocaine 2% added to field 20 Heparin Flush Bag added to field 2 bags (1000units/500ml NS) 0.9% NaCl I.V. 100 ml/hr Versed I.V. 1 mg Fentanyl I.V. 50 mcg Versed I.V. 1 mg Fentanyl I.V. 50 mcg Lopressor I.V. 5 mg Hemodynamics Rest BSA: 1.79 (m2) HGB: 15.1 (g/dl) O2 Consumption: Estimated: 243.44 (ml/min) O2 Co nsumption indexed: Estimated:136 (ml/min/m) Heart Rate: 0 (bpm) Pressure Samples Time Site Value (mmHg) Purpose Heart Use Rate(bpm) 11:36 LV 198/12,18 Snapshot 78 Gradients Valve Time Site Site Mean SEP/DFP Peak To Heart Use 1 2 (mmHg) (sec/min) Peak Rate (mmHg) (bpm) Aortic 11:37 LV AO 78 Snapshots Pre Cath Intra NCS Post Cath Vital Signs Time Heart Resp SPO2 etCO2 NIBP (mmHg) Rhythm Pain Sedation Rate (ipm) (%) (mmHg) Status Level (bpm) 11:19:08 68 17 98 0 198/97(161) NSR 0 (11) 10(A) , No pain 11:23:37 67 16 98 0 185/93(139) NSR 0 (11) 10(A) , No pain 11:28:01 66 13 98 32.9 187/94(160) NSR 0 (11) 9(A) , No pain 11:32:25 64 13 96 26.1 197/95(169) NSR 0 (11) 9(A) , No pain 11:37:24 75 14 96 33.6 Measuring NSR 0 (11) 9(A) , No pain 11:38:48 78 15 94 33.6 Time NSR 0 (11) 10(A) Exceeded , No pain 11:44:42 64 25 97 34.3 Time NSR 0 (11) 10(A) Exceeded , No pain 11:46:31 64 15 98 36.6 187/96(123) NSR 0 (11) 10(A) , No pain Medications Time Medication Route Dose Verified Delivered Reason Notes Effectiveness by by 11:18:39 Oxygen etCO2 2 Chad Minaie used for Nasal l/min NerissaWilbert Moe wire brush maker cannula 11:18:45 Lidocaine 2% added 20ml Chad Chad for local to vial [facility] anesthetic field MD TREJO 11:18:51 Heparin Flush added 2 Chad Chad used for Bag to bags [facility] procedure (1000units/500ml field MD TREJO NS) 11:18:59 0.9% NaCl I.V. 100 Chad Buffie Per ml/hr St Wilbert Moe RN physician 11:24:59 Versed I.V. 1 mg Chad Minaie for Nerissa Moe RN sedation 11:25:06 Fentanyl I.V. 50 Chad Minaie for mcg Nerissa Moe RN sedation 11:29:11 Versed I.V. 1 mg Chad Buffie for Nerissa Moe RN sedation 11:29:15 Fentanyl I.V. 50 Chad Minaie for mcg Nerissa Moe RN sedation 11:38:15 Lopressor I.V. 5 mg Chad Minaie Per for St Wilbert Moe RN physician hypertension Procedure Log Time Note 10:49:22 Informed consent obtained and on chart 10:52:22 Diagnostic Cath Status : Urgent 10:52:49 Insurance Payor : Private health insurance 10:53:03 Arrival Date: 08/16/2019 12:00:00 AM 10:53:04 Admit Source: Other 10:53:13 Patient Height : 60 inches 10:53:21 Patient Weight : 180.36 lbs 11:06:11 Lab Result : eGFR NONAFRICAN 66 ml/min 11:06:11 Lab Result : Hemoglobin 15.1 g/dl 11:06:11 Lab Result : BUN 12 mg/dl 11:06:11 Lab Result : Creatinine 1.2 mg/dl 11:07:36 Procedure Status Urgent Heart Cath (IP). 11:07:41 Austin Moe RN sent for patient. Start room use. 11:07:42 Time tracking: Regular hours (M-F 7:00 - 5:00) 11:07:47 Plan of Care:Hemodynamics will remain stable., Cardiac rhythm will remain stable., Comfort level will be maintained., Respiratory function will remain adequate., Patient/ family verbilizes understanding of procedure., Procedure tolerated without complication., Recovers from procedure without complications.. 11:12:35 Patient received from Med II to CCL 2 Alert and oriented. Tansferred to table in Supine position. 11:12:37 Warm blankets applied, and laura hugger turned on for patient comfort. 11:12:38 Correct patient and procedure confirmed by team. 11:16:54 Vital chart was started 11:16:56 ECG and BP/O2 sat monitors applied to patient. 11:16:58 Baseline sample Acquired. 11:16:59 Baseline sample Acquired. 11:17:03 Baseline sample Acquired. 11:17:08 Rhythm: sinus rhythm 11:17:09 Full Disclosure recording started 11:17:25 H&P Date Dictated: 08/16/2019 Within 30 days and on chart.. 11:17:26 Pre-procedure instructions explained to patient. 11:17:28 Family unavailable. 11:17:30 Patient NPO since Midnight. 11:17:43 Patient allergic to No known allergies 11:17:47 Is the patient allergic to Iodine/contrast media? No. 11:17:49 Is patient on blood thinner?No 11:17:51 Patient diabetic? No. 11:17:56 Snore? No 11:17:57 Sleep apnea? No 11:18:13 Airway obstruction? Yes BRONCHITIS 11:18:19 Dentures? Yes TIGHT 11:18:27 Patient pain scale 0/10 ?. 11:18:39 Oxygen 2 l/min etCO2 Nasal cannula was administered by Austin Moe RN; used for procedure; Verbal order read back and verified. 11:18:45 Lidocaine 2% 20ml vial added to field was administered by Chad Multani MD; for local anesthetic; Verbal order read back and verified. 11:18:51 Heparin Flush Bag (1000units/500ml NS) 2 bags added to field was administered by Chad Multani MD; used for procedure; Verbal order read back and verified. 11:18:58 IV patent on arrival in right hand with 0.9% NaCl at O. 11:18:59 0.9% NaCl 100 ml/hr I.V. was administered by Austin Moe RN; Per physician; Verbal order read back and verified. 11:19:01 Lab results completed and on chart. 11:19:14 Right groin area was prepped with chlora-prep and draped in sterile fashion 11:19:15 Alarms reviewed by R. N. 11:19:16 Sharps counted by scrub and verified by R.N. 11:19:17 Physician arrived 11:19:20 --------ALL STOP TIME OUT------ 11:19:25 Final Timeout: patient, procedure, and site verified with staff and physician. All members of the team are in agreement. 11:19:27 Right groin site verified by team. 11:19:31 Fire Safety Assessment: A--An alcohol-based skin anteseptic being used preoperatively., C--Open oxygen or nitrous oxide is being used., D--An ESU, laser, or fiber-optic light is being used. 11:19:37 Physical assessment completed. ASA score P 3 - A patient with severe systemic disease as per Chad Multani MD. 11:19:45 2) 60-89 Mildly reduced kidney function, and other findings (as for stage 1) point to kidney disease. 11:20:38 Maximum allowable contrast dose (3.7 X eGFR X 0.75)227 ml. 11:20:42 Sedation plan: IV Moderate Sedation Medication:Versed, Fentanyl 11:20:47 Use device set Femoral Dx 11:20:48 ACIST Syringe (02675) opened to sterile field. 11:20:48 Bag Decanter (2002S) opened to sterile field. 11:20:49 Medline Cath Pack ([id number]) opened to sterile field. 11:20:51 ACIST Hand Control (52915) opened to sterile field. 11:20:51 ACIST Manifold (77873) opened to sterile field. 11:20:52 DIAGNOSTIC Multipack 5Fr catheter set (OU0366) opened to sterile field. 11:20:53 Tegaderm 4 x 4 (1626W) opened to sterile field. 11:20:54 SHEATH 5FR Midland (OFD946) opened to sterile field. 11:20:54 EMERALD Guide Wire (973-343) opened to sterile field. 11:24:59 Versed 1 mg I.V. was administered by Austin Moe RN; for sedation; Verbal order read back and verified. 11:25:06 Fentanyl 50 mcg I.V. was administered by Austin Moe RN; for sedation; Verbal order read back and verified. 11:28:06 Procedure started. 11:28:10 Local anesthetic to right femoral artery with Lidocaine 2% by Chad Multani MD.INITIAL ACCESS ONLY 11:28:30 A 5 Fr sheath was inserted into the Right Femoral artery 11:28:35 Zero performed for pressure channel P1 11:29:11 Versed 1 mg I.V. was administered by Austin Moe RN; for sedation; Verbal order read back and verified. 11:29:15 Fentanyl 50 mcg I.V. was administered by Austin Moe RN; for sedation; Verbal order read back and verified. 11:29:38 A MULTIPACK JL 4.0 5Fr catheter was advanced over the wire and used for Procedure. 11:30:16 LCA angiography performed. 11:32:34 A MULTIPACK 3DRC 5Fr catheter was advanced over the wire and used for Procedure. 11:32:37 RCA angiography performed. 11:33:50 SVG to Circ angiography performed. 11:34:25 SVG to OM angiography performed. 11:34:59 RABAGO to LAD angiography performed. 11:35:58 Catheter removed. 11:36:29 A MULTIPACK Pigtail 5 Fr catheter was advanced over the wire and used for Ventriculography. 11:38:15 Lopressor 5 mg I.V. was administered by Austin Moe RN; Per physician; for hypertension Verbal order read back and verified. 11:38:48 LV gram done using SANCHEZ 11:39:08 EF : 55 % 11:39:11 Catheter removed. 11:39:21 A DIAGNOSTIC AR1 MOD 5Fr catheter ([id number]) was advanced over the wire and used for Procedure. 11:39:29 SVG to RCA angiography performed. 11:39:34 Catheter removed. 11:39:44 EXOSEAL 5Fr (EX500) opened to sterile field. 11:40:03 Sheath removed intact; hemostasis achieved with Exoseal to the Right Femoral artery. 11:40:49 Procedure ended.(Physican Out) 11:41:29 Fluoroscopy time 03.30 minutes. 11:41:33 Fluoroscopy dose: 836 mGy 11:41:33 Flurop Dose total: 836 11:41:38 Dose Area Product 85400 mGy/cm. 11:41:44 Contrast amount:Isovue 300 100ml. 11:41:46 Maximum allowable dose exceeded? No. 11:41:47 Sharps counted by scrub and verified by R.N. 11:41:49 Insertion/operative site no bleeding no hematoma. 11:41:53 Post right femoral artery:stable 11:41:58 Post Procedure Pulses reassessed and unchanged 11:42:02 Post procedure rhythm: unchanged. 11:42:05 Estimated blood loss: 10 ml 11:42:06 Post procedure instruction explained to patient.Patient verbalizes understanding. 11:42:27 Procedure type changed to Cath procedure, Diagnostic procedure, LHC, LHC w/Coronaries w/Grafts, Sedation Charges, Moderate Sedation up to 15 minutes 11:42:28 Procedure and supply charges have been captured, reviewed, submitted and are correct. 11:42:52 Procedure Complication : No complications 11:42:55 Vital chart was stopped 11:42:58 [facility] Findings: mild to moderate CAD (<70%) 11:43:00 Operative report dictated upon procedure completion. 11:43:01 See physician's report for complete and final results. 11:43:05 Report given to [facility] II. 11:43:09 Patient transfered to [facility] with Bed. 11:43:11 Procedure ended. 11:43:11 Full Disclosure recording stopped 11:43:17 End room use (Document Last) 11:43:44 End room use (Document Last) 11:44:21 End room use (Document Last) Device Usage Item Name Manufacture Quantity Catalog Hospital Part Current Minimal L ot# / Number Charge Number Stock Stock Serial# Code ACIST Acist 1 08293 766507 219169 574592 20 Syringe Medical (37066) Systems Inc Bag Microtek 1 2001S 576351 34340 475006 5 Decanter Medical Inc. () Medline Medline 1 [id number] 320150 23592 254574 5 Cath Pack ([id number]) ACIST Hand Acist 1 02926 076488 168048 408493 5 Control Medical (00881) Systems Inc ACIST Acist 1 90897 180130 429100 408012 5 Manifold Medical (20296) Systems Inc DIAGNOSTIC Cardinal 1 [id number] 662438 67906 955043 30 Multipack Health 5Fr catheter set (YW5717) Tegaderm 4 3M 1 1626W 235523 625748 838306 5 x 4 (1626W) SHEATH 5FR Terumo 1 UQT670 458991 196613 649205 5 Midland (BCS043) EMERALD Cardinal 1 502-455 744680 218641 199665 5 Guide Wire Health (502455) MULTIPACK Cardinal 1 504997 5 JL 4.0 5Fr Health catheter MULTIPACK Cardinal 1 494651 5 3DRC 5Fr Health catheter MULTIPACK Cardinal 1 650049 5 Pigtail 5 Health Fr catheter DIAGNOSTIC Cardinal 1 [id number] 382266 308790 944053 15 AR1 MOD 5Fr Health catheter (140929G) EXOSEAL 5Fr Cardinal 1 EX500 719366 790703 852214 10 (EX500) Health Signature Audit [place] Stage Time Signature Unsigned Intra-Procedure 08/16/2019 Rylie Betancourt 11:43:44 AM RT(R) Intra-Procedure 08/16/2019 Austin Moe RN 11:44:22 AM Intra-Procedure 08/16/2019 Chad Britt 11:48:51 AM Wilbert TREJO Signatures Performing Physician : Signature : Chad Multani MD Date : Time : Monitor : Rylie Serafin Signature : RT Date : Time : Nurse : Buffie Moe RN Signature : Date : Time : [address] [place] [address]
[~2019-08-15 20:53] MED LIST changes: +TRIAMTERENE-HC1 EAC6 PO
[2019-08-15] MEDS ORDERED: ASPIRIN81 MG PO (20:58)
[2019-08-15 21:28] LABS: BASOPHILS 0.2 % (0-2); EOSINOPHILS 1.3 % (0-7); HEMATOCRIT 45.9 % (42.0-54.0); HEMOGLOBIN 15.1 g/dL (13.5-17.5); IMMATURE GRANULOCYTES 0.2 % (0-5); LYMPHOCYTES 25.2 % (15-50); MCH 30.6 pg (26.0-34.0); MCHC 32.9 g/dL (31.0-37.0); MCV 93.1 fL (80.0-100.0); MEAN PLATELET VOLUME 9.3 fL (7.4-10.4); NEUTROPHILS 67.1 % (40-80); PLATELET COUNT 203 10x3/uL (130-400); RBC 4.93 10x6/uL (4.20-6.10); RDW 13.5 % (11.5-14.5); WBC 8.2 10x3/uL (4.8-10.8)
[2019-08-15 21:30] VITALS: BP 201/92
[2019-08-15 21:36] LABS: CALC OSMOLALITY 278 mosm/kg (275-300); CALCIUM 8.2 mg/dL (8.5-10.1); CHLORIDE - SERUM 102 mmol/L (98-107); CREATININE - SERUM 1.2 mg/dL (0.6-1.3); GLUCOSE 161 mg/dL (74-106); POTASSIUM - SERUM 3.9 mmol/L (3.5-5.1); SODIUM 138 mmol/L (136-145); UREA NITROGEN 12 mg/dL (7-18); eGFR NON AFRICAN AMERICAN 66 mL/min (90-120)
[2019-08-15 21:45] VITALS: BP 205/95
[2019-08-15 21:51] LABS: APTT 24.5 SECONDS (22.8-39.4); INR 0.94 (0.85-1.17); PROTIME 12.6 SECONDS (11.6-15.0)
[2019-08-15 21:53] LABS: ALBUMIN 3.4 g/dL (3.4-5.0); ALKALINE PHOSPHATASE 94 U/L (30-120); ALT (SGPT) 22 U/L (10-68); CKMB 1.7 U/L (0.0-3.6); CREATINE KINASE 99 UL (21-232); MAGNESIUM - SERUM 2.1 mg/dL (1.8-2.4); PROTEIN - SERUM 7.2 g/dL (6.4-8.2)
[2019-08-15 21:54] LABS: TROPONIN-I < 0.017 ng/mL (0.000-0.060)
[2019-08-15 22:10] VITALS: BP 218/103
--- NOTE | 2019-08-15 23:41 | NUR ---
WHEN ATTEMPTING TO COMPLETE PATIENT MED REC. PATIENT STATED, "HE DOES NOT TAKE ANY MEDICATIONS." HE THAN STATED, "I ATTEMPT TO TAKE MY ASPIRIN, WHEN I REMEMBER."
[2019-08-16] VITALS: BP 176/83
[2019-08-16 01:36] LABS: CKMB 1.4 U/L (0.0-3.6); CREATINE KINASE 76 UL (21-232); TROPONIN-I 0.024 ng/mL (0.000-0.060)
[2019-08-16 04:00] VITALS: BP 180/87
[2019-08-16 05:34] LABS: BASOPHILS 0.2 % (0-2); EOSINOPHILS 2.7 % (0-7); HEMATOCRIT 44.9 % (42.0-54.0); HEMOGLOBIN 14.5 g/dL (13.5-17.5); IMMATURE GRANULOCYTES 0.2 % (0-5); LYMPHOCYTES 32.8 % (15-50); MCH 30.3 pg (26.0-34.0); MCHC 32.3 g/dL (31.0-37.0); MCV 93.7 fL (80.0-100.0); MEAN PLATELET VOLUME 9.8 fL (7.4-10.4); NEUTROPHILS 57.1 % (40-80); PLATELET COUNT 199 10x3/uL (130-400); RBC 4.79 10x6/uL (4.20-6.10); RDW 13.8 % (11.5-14.5); WBC 8.8 10x3/uL (4.8-10.8)
[2019-08-16 06:02] LABS: ALBUMIN 3.1 g/dL (3.4-5.0); ALKALINE PHOSPHATASE 82 U/L (30-120); ALT (SGPT) 17 U/L (10-68); BILIRUBIN - TOTAL 0.29 mg/dL (0.2-1.3); CALC OSMOLALITY 276 mosm/kg (275-300); CALCIUM 8.4 mg/dL (8.5-10.1); CARBON DIOXIDE 29.4 mmol/L (21.0-32.0); CHLORIDE - SERUM 103 mmol/L (98-107); MAGNESIUM - SERUM 2.1 mg/dL (1.8-2.4); PHOSPHOROUS 4.4 mg/dL (2.5-4.9); POTASSIUM - SERUM 4.3 mmol/L (3.5-5.1); PRO BNP 1869 pg/mL (0-125); PROTEIN - SERUM 6.7 g/dL (6.4-8.2); SODIUM 139 mmol/L (136-145); THYROID STIMULATING HORMONE 0.75 uIU/mL (0.36-3.74); UREA NITROGEN 9 mg/dL (7-18); eGFR NON AFRICAN AMERICAN 82 mL/min (90-120)
[2019-08-16 06:20] LABS: GLUCOSE 106 mg/dL (74-106)
[2019-08-16 07:24] LABS: CKMB 1.7 U/L (0.0-3.6); CREATINE KINASE 76 UL (21-232); TROPONIN-I 0.024 ng/mL (0.000-0.060)
[2019-08-16 09:02] LABS: CHOL - HDL RATIO 4.9 ratio (2.3-4.9); LDL-HDL RATIO 3.3 ratio (1.5-3.5)
[2019-08-16 09:11] VITALS: BP 184/93
--- NOTE | 2019-08-16 10:29 | NUR ---
URINE SPECIMEN COLLECTED AND TAKEN TO LAB. WILL MONITOR.
--- NOTE | 2019-08-16 11:00 | NUR ---
PRE-OPS GIVEN. TO CERTIFIED RECREATIONAL THERAPIST BY BED.
[2019-08-16 11:55] LABS: BILIRUBIN NEGATIVE (NEGATIVE); GLUCOSE NEGATIVE (NEGATIVE); KETONE NEGATIVE (NEGATIVE); NITRITE NEGATIVE (NEGATIVE); UROBILINOGEN NORMAL (NORMAL)
[2019-08-16 11:59] LABS: UDS - AMPHET NEGATIVE QUAL (NEGATIVE); UDS - BARB NEGATIVE QUAL (NEGATIVE); UDS - BENZO NEGATIVE QUAL (NEGATIVE); UDS - COCAINE NEGATIVE QUAL (NEGATIVE); UDS - OPIATE NEGATIVE QUAL (NEGATIVE); UDS - PCP NEGATIVE QUAL (NEGATIVE); UDS - THC NEGATIVE QUAL (NEGATIVE)
--- NOTE | 2019-08-16 12:00 | NUR ---
ARNOLD SHOEMAKER NOTIFIED OF C/O SWALLOWING TO ME AND TO DR. CHAVARRIA IN THE ELECTRICIAN[facility]S [facility]IST[facility]. NEW ORDERS GIVEN TO R/O.
--- NOTE | 2019-08-16 12:15 | NUR ---
BACK FROM DEBEAKER. VS WNL. RIGHT GROIN STABLE WITHOUT BLEEDING OR HEMATOMA NOTED. WILL MONITOR.
--- NOTE | 2019-08-16 14:05 | NUR ---
BED REST UP. GROIN STABLE.
--- NOTE | 2019-08-16 15:50 | NUR ---
LEAVING FOR CT BY W/C.
--- NOTE | 2019-08-16 17:39 | NUR ---
CONSENTS SIGNED FOR [facility].
--- NOTE | 2019-08-16 19:31 | NUR ---
RECEIVED BEDSIDE REPORT. PATIENT IS ALERT AND ORIENTED, SITTING UP ON SIDE OF BED. RESPIRATIONS ARE EVEN AND UNLABORED. NO S/S OF DISTRESS. NO C/O PAIN. CALL LIGHT WITHIN REACH. WILL CPOC.
[2019-08-16 20:00] VITALS: BP 205/84
[2019-08-16 23:44] VITALS: BP 194/91
[2019-08-17 04:00] VITALS: BP 185/89
[2019-08-17 05:59] LABS: BASOPHILS 0.1 % (0-2); EOSINOPHILS 2.1 % (0-7); HEMATOCRIT 45.9 % (42.0-54.0); HEMOGLOBIN 14.8 g/dL (13.5-17.5); IMMATURE GRANULOCYTES 0.4 % (0-5); LYMPHOCYTES 24.8 % (15-50); MCH 30.3 pg (26.0-34.0); MCHC 32.2 g/dL (31.0-37.0); MCV 94.1 fL (80.0-100.0); MEAN PLATELET VOLUME 9.5 fL (7.4-10.4); MONOCYTES 8.5 % (2-11); NEUTROPHILS 64.1 % (40-80); PLATELET COUNT 205 10x3/uL (130-400); RBC 4.88 10x6/uL (4.20-6.10); RDW 14.1 % (11.5-14.5); WBC 9.7 10x3/uL (4.8-10.8)
[2019-08-17 06:22] LABS: CALC OSMOLALITY 272 mosm/kg (275-300); CALCIUM 8.9 mg/dL (8.5-10.1); CARBON DIOXIDE 26.7 mmol/L (21.0-32.0); CHLORIDE - SERUM 102 mmol/L (98-107); CREATININE - SERUM 0.9 mg/dL (0.6-1.3); GLUCOSE 103 mg/dL (74-106); POTASSIUM - SERUM 4.4 mmol/L (3.5-5.1); SODIUM 137 mmol/L (136-145); UREA NITROGEN 9 mg/dL (7-18); eGFR NON AFRICAN AMERICAN > 90 mL/min (90-120)
[2019-08-17 08:45] VITALS: BP 214/98
--- NOTE | 2019-08-17 09:52 | NUR ---
PRE-OPS GIVEN. TO GI LAB BY JAZMIN.
--- NOTE | 2019-08-17 11:55 | NUR ---
LEAVING FOR MRI BY W/C.
--- NOTE | 2019-08-17 13:31 | NUR ---
LEAVING FOR SWALLOW EVAL BY W/C.
--- NOTE | 2019-08-17 13:35 | OP ---
PATIENT NAME: FERNY ASHER JR MEDICAL RECORD: [id number] :64 LOCATION:D.M2 D.2115 ADMISSION DATE:08/15/19 SURGEON: ZULEIMA CHAVARRIA MD DATE OF OPERATION: 08/16/2019 PROCEDURE: Left heart catheterization, selective coronary angiography, right femoral artery approach. CATHETERS: A 5-Faroese sheath, 5/4 left and right Neela, 5/4 pig. The procedure was well tolerated. The patient returned to the saha, sheath removed with adequate hemostasis and ExoSeal device placed. FINDINGS: Left ventriculography in 30-degree SANCHEZ view: Normal wall motion and normal systolic function. CORONARY ANATOMY: LEFT MAIN: Left main is free of disease. LAD: Fills for a short period of time, then is seen filling well via competitive flow via the RABAGO. CIRCUMFLEX: Circumflex fills for a short period, again this is totally occluded. RIGHT CORONARY ARTERY: Totally occluded at the level of the PD. SAPHENOUS VEIN GRAFT: Saphenous vein graft to the right is widely patent throughout its course without evidence of post-anastomotic stenosis. Saphenous vein graft is to circ OM in a skip fashion and this is widely patent throughout its course with good filling both circumflex and OM distally. Saphenous vein graft to the diagonal again widely patent. This fills a small diagonal. The diagonal itself has no significant stenosis. RABAGO to LAD is widely patent. IMPRESSION: No LV function, 5/5 bypass grafts all patent with good post-anastomotic runoff. TRANSINT:[id number] Voice Confirmation ID: [id number] DOCUMENT ID: [id number] ZULEIMA CHAVARRIA MD at 1335 CC: [id number] DICTATION DATE: 08/16/19 1152 SAFETY SUPERVISOR: 08/16/19 1649 ADM IN [facility] [address] [place] [address]
[2019-08-17 14:50] VITALS: BP 202/90
--- NOTE | 2019-08-17 15:28 | NUR ---
CONSENTS SIGNED FOR PEG TUBE PLACEMENT. WILL MONITOR.
--- NOTE | 2019-08-17 16:01 | MORECARE ---
CASE MANAGEMENT DISCHARGE SUMMARY PATIENT: FERNY ASHER JR UNIT: [id number] ADM DATE: 08/15/19 AGE: 58 : 64 SEX: M ROOM/BED: D.7015 AUTHOR: MARISOL,DOC PHYSICIAN: REFERRING PHYSICIAN: SAMANTHA WONG MD DATE OF SERVICE: 08/17/19 Discharge Plan Patient Name: FERNY ASHER Facility: [facility]:[place] : 1960 Planned Disposition: Home Anticipated Discharge Date: Discharge Date: Expected LOS: Initial Reviewer: [email or web address] Initial Review Date: 08/17/2019 Generated: 08/17/19 5:00 pm Comments DCP- Discharge Planning Updated by [email or web address]: Iesha Dai on 08/17/19 2:[address] Patient Name: FERNY ASHER Admission Status: ER Accout number: [id number] Admission Date: 08-15-2019 : 1960 Admission Diagnosis:DIZZINESS AND GIDDINESS Attending: SAMANTHA WONG Current LOS: 2 Anticipated DC Date: Planned Disposition: Home [place] Insurance[place] PR[place] [employer] Discharge Planning Comments: CM met with patient to complete initial dc planning assessment. CM educated patient on the CM role and verbal consent given by patient to complete assessment. Patient lives at home alone. At discharge patient plans to return and feels this is a safe discharge. CM discussed availability of home health, rehab services, and medical equipment. Patient denied known discharge needs at this time. CM will continue to follow and will assist as needed with dc plans/needs. Security Risk Analyst: Iesha Dai DCPIA - Discharge Planning Initial Assessment Updated by [email or web address]: Iesha Dai on 08/17/19 3:54 pm * Is the patient Alert and Oriented? Yes * How many steps to enter\exit or inside your home? 0/0 * PCP Dr. Caba in [place] * Pharmacy [facility] on [place] and [facility] * Preadmission Environment Home Alone * ADLs Independent * Equipment None * List name and contact numbers for known caregivers / representatives who currently or will assist patient after discharge: Hai helen - [phone] * Verbal permission to speak to the caregivers and representatives has been obtained from the patient. Yes * Community resources currently utilized None * Additional services required to return to the preadmission environment? No * Can the patient safely return to the preadmission environment? Yes * Has this patient been hospitalized within the prior 30 days at any hospital? No Patient Name: FERNY ASHER Page [id number] at 1601 All edits/amendments must be made on the electronic document DICTATION DATE: 08/17/191599 TITLE CHECKER: MINDA 08/17/191599 RPT#: [id number] DC DATE: STATUS: ADM IN [facility] [address] [place] [address] END OF REPORT
[2019-08-17 16:51] VITALS: BP 146/81
[2019-08-17 20:00] VITALS: BP 189/85
[2019-08-18] VITALS: BP 178/80
[2019-08-18 04:00] VITALS: BP 153/74
[2019-08-18 04:33] LABS: BASOPHILS 0.2 % (0-2); HEMATOCRIT 47.5 % (42.0-54.0); HEMOGLOBIN 15.1 g/dL (13.5-17.5); IMMATURE GRANULOCYTES 0.4 % (0-5); LYMPHOCYTES 23.1 % (15-50); MCH 30.4 pg (26.0-34.0); MCHC 31.8 g/dL (31.0-37.0); MCV 95.6 fL (80.0-100.0); MEAN PLATELET VOLUME 9.5 fL (7.4-10.4); MONOCYTES 10.4 % (2-11); NEUTROPHILS 63.9 % (40-80); PLATELET COUNT 199 10x3/uL (130-400); RBC 4.97 10x6/uL (4.20-6.10); RDW 14.3 % (11.5-14.5); WBC 10.2 10x3/uL (4.8-10.8)
[2019-08-18 04:36] LABS: CALC OSMOLALITY 275 mosm/kg (275-300); CALCIUM 8.6 mg/dL (8.5-10.1); CARBON DIOXIDE 29.5 mmol/L (21.0-32.0); CHLORIDE - SERUM 103 mmol/L (98-107); GLUCOSE 100 mg/dL (74-106); POTASSIUM - SERUM 4.2 mmol/L (3.5-5.1); SODIUM 139 mmol/L (136-145); UREA NITROGEN 8 mg/dL (7-18); eGFR NON AFRICAN AMERICAN 82 mL/min (90-120)
--- NOTE | 2019-08-18 07:26 | NUR ---
ASSESSMENT DONE. DENIES NEEDS
[2019-08-18 09:05] VITALS: BP 214/98
[2019-08-18 12:59] VITALS: BP 180/80
[2019-08-18 13:47] VITALS: Ht 172.7 cm; Wt 81.6 kg
--- NOTE | 2019-08-18 16:10 | NUR ---
TUBE FEEDING STARTEDM AT 15 CC HR.
--- NOTE | 2019-08-18 17:11 | NUR ---
WITHOUT CHANGES OR DISTRESS NOTED AT THIS TIME. DENIES NEEDS
[2019-08-18 17:44] VITALS: BP 205/83
--- NOTE | 2019-08-18 19:15 | NUR ---
REPORT RECIVED. BEDSIDE SHIFT REPROT COMPLETE. PT IN BED WATCHING TV. NO DISTRESS OBSERVED. CALL LIGHT IN REACH. TUBE FEEDING AT 15ML/HR. PT C/O THAT HE IS HUNGREY. EDUCATED PT ON BEING NPO. NO FURHTER VOICED C/O. WILL CPOC.
--- NOTE | 2019-08-18 22:22 | NUR ---
NO RESIDUAL AT THIS TIME. FEEING INCREASED TO 25MLHR
[2019-08-18 22:37] VITALS: BP 196/81
--- NOTE | 2019-08-19 00:26 | NUR ---
PIV D/C TO RIGHT AC, CATHETER TIP INTACT. NEW 22G IV TO LEFT AC, X2 ATTEMPT.
[2019-08-19 00:40] VITALS: BP 210/96
[2019-08-19 05:51] LABS: BASOPHILS 0.1 % (0-2); EOSINOPHILS 1.7 % (0-7); HEMATOCRIT 50.6 % (42.0-54.0); HEMOGLOBIN 16.2 g/dL (13.5-17.5); IMMATURE GRANULOCYTES 1.1 % (0-5); MCH 30.2 pg (26.0-34.0); MCV 94.4 fL (80.0-100.0); MEAN PLATELET VOLUME 10.9 fL (7.4-10.4); MONOCYTES 6.8 % (2-11); NEUTROPHILS 73.3 % (40-80); PLATELET COUNT 164 10x3/uL (130-400); RBC 5.36 10x6/uL (4.20-6.10); RDW 14.2 % (11.5-14.5); WBC 9.4 10x3/uL (4.8-10.8)
--- NOTE | 2019-08-19 05:57 | NUR ---
TUBE FEEDING INCREASED TO 35ML/HR
[2019-08-19 06:00] LABS: CALC OSMOLALITY 271 mosm/kg (275-300); CALCIUM 8.8 mg/dL (8.5-10.1); CARBON DIOXIDE 26.6 mmol/L (21.0-32.0); CHLORIDE - SERUM 101 mmol/L (98-107); CREATININE - SERUM 0.8 mg/dL (0.6-1.3); GLUCOSE 113 mg/dL (74-106); POTASSIUM - SERUM 3.7 mmol/L (3.5-5.1); SODIUM 136 mmol/L (136-145); eGFR NON AFRICAN AMERICAN > 90 mL/min (90-120)
[2019-08-19 06:02] LABS: UREA NITROGEN 11 mg/dL (7-18)
[2019-08-19 06:31] VITALS: BP 169/88
--- NOTE | 2019-08-19 07:00 | NUR ---
RECEIVED REPORT. ASSUMED CARE OF PATIENT. CALL LIGHT WITHIN REACH. NO DISTRESS. SR ON TELEMETRY, RATE 69.
--- NOTE | 2019-08-19 07:29 | NUR ---
SPOKE WITH NAVID BARRETT DUE TO PATIENT ON ORAL CARDIZEM AND CARDIZEM GTT AT THIS TIME. PATIENT IS SR ON TELEMETRY, RATE OF 74.
[2019-08-19 08:07] VITALS: BP 182/63
--- NOTE | 2019-08-19 09:30 | NUR ---
TOLERATING TUBE FEEDING WELL. 5ML RESIDUAL AT THIS TIME. TOLERATES MEDS WELL. NO DISTRESS. HOB ELEVATED 30 DEGREES.
--- NOTE | 2019-08-19 11:01 | NUR ---
PATIENT OOB TO SHOWER AT THIS TIME. NO DISTRESS.
[2019-08-19 11:32] VITALS: BP 125/71
--- NOTE | 2019-08-19 11:45 | NUR ---
SHOWER COMPLETE. PATIENT RESTING IN BED. TUBE FEEDING INCREASED TO 40 ML/HR AT THIS TIME. TOLERATING TUBE FEEDING/FLUSHES WELL. NO DISTRESS. IV FLUIDS/MEDICATIONS INFUSING ORDERED.
--- NOTE | 2019-08-19 12:30 | NUR ---
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 THE PATIENT ALSO STATES THAT NOW THAT HE THINKS ABOUT IT, THE PATIENT HAD NO PAIN WHEN THE IV WAS PLACED TO HIS LEFT AC LAST NOC. NEURO ASSESSMENT COMPLETE WITH NO DEVIATION FROM ASSESSMENT COMPLETED THIS AM. CALL LIGHT WITHIN REACH. THANKED PATIENT FOR SHARING HIS OBSERVATIONS WITH THIS POCKET AND PULLEY MACHINE OPERATOR.
--- NOTE | 2019-08-19 14:35 | NUR ---
PATIENT AMBULATING HALLWAY AND RETURNED TO ROOM AT THIS TIME. AMBULATING WITHOUT DIFFICULTY. NO DISTRESS. IV FLUIDS/TUBE FEEDING INFUSING ORDERED.
[2019-08-19 14:48] VITALS: BP 180/79
--- NOTE | 2019-08-19 17:03 | NUR ---
RESTING IN BED, PATIENT STATES HE IS HUNGRY. PATIENT IS DUE TO HAVE FORMULA INCREASED AT 1800 TO 45ML/HR. PATIENT VERBALIZED HIS UNDERSTANDING. NO DISTRESS.
[2019-08-19 20:00] VITALS: BP 140/91
--- NOTE | 2019-08-19 20:00 | NUR ---
REPORT RECIEVED AND INITIAL ROUNDS COMPLETED. PT RESTING IN BED. PT IS NPO. PEG TUBE TO ABDOMEN WITH JEVITY INFUSING AT 45ML/HR + WATER BOLUS. ALERT/ORIENTED. SR PER TELEMETRY. SEE ASSESSMENT. CALL LIGHT IN REACH.
--- NOTE | 2019-08-19 23:00 | NUR ---
RESTING IN BED. IV INFUSING NS @ 50ML/HR. BEDTIME MEDS CRUSHED AND GIVEN VIA PEG TUBE. ALSO GAVE IV MORPHINE WITH IV ZOFRAN AND IV APRESOLINE FOR BP 190/91. MONITOR. CPOC.
[2019-08-20 00:01] VITALS: BP 184/74
[2019-08-20 05:45] LABS: BASOPHILS 0.1 % (0-2); EOSINOPHILS 1.6 % (0-7); HEMATOCRIT 49.7 % (42.0-54.0); HEMOGLOBIN 15.9 g/dL (13.5-17.5); IMMATURE GRANULOCYTES 0.3 % (0-5); LYMPHOCYTES 18.9 % (15-50); MCH 30.8 pg (26.0-34.0); MCV 96.1 fL (80.0-100.0); MEAN PLATELET VOLUME 10.1 fL (7.4-10.4); MONOCYTES 8.3 % (2-11); NEUTROPHILS 70.8 % (40-80); RBC 5.17 10x6/uL (4.20-6.10); RDW 14.1 % (11.5-14.5); WBC 10.4 10x3/uL (4.8-10.8)
[2019-08-20 05:46] LABS: PLATELET COUNT 203 10x3/uL (130-400)
[2019-08-20 06:13] LABS: CALC OSMOLALITY 276 mosm/kg (275-300); CALCIUM 8.8 mg/dL (8.5-10.1); CARBON DIOXIDE 26.3 mmol/L (21.0-32.0); CHLORIDE - SERUM 102 mmol/L (98-107); CREATININE - SERUM 0.9 mg/dL (0.6-1.3); GLUCOSE 129 mg/dL (74-106); POTASSIUM - SERUM 3.6 mmol/L (3.5-5.1); SODIUM 138 mmol/L (136-145); UREA NITROGEN 10 mg/dL (7-18); eGFR NON AFRICAN AMERICAN > 90 mL/min (90-120)
[2019-08-20 08:00] VITALS: BP 155/71
[2019-08-20 14:06] VITALS: BP 170/77
--- NOTE | 2019-08-20 15:45 | NUR ---
ALERT AND ORIENTED X4. SITTING UP IN BED. DEMONSTRATE AND EXPLAIN IN DETAIL STEP BY STEP FOR MEDICATION ADMINISTRATION THROUGH PEG TUBE. ENCOURAGE TO ASK QUESTIONS DURING NIGHT TO BE PREPARED TO DEMONSTRATE IN AM. INFORM WRITTEN DIRECTIONS WILL BE PROVIDED AT DISCHARGE. SINUS RYTHM 88 ON TELEMETRY. DENIES ANY NEEDS. CONTINUE PLAN OF CARE AND SAFETY PRECAUTIONS.
[2019-08-20 20:00] VITALS: BP 205/84
--- NOTE | 2019-08-20 20:02 | NUR ---
REPORT RECIEVED AND INITIAL ROUNDS COMPLETE. PT RESTING IN BED. NO DISTRESS. JEVITY TF INFUSING AT 60 ML/HR VIA PEG. NONLABORED RESPIRATIONS. NS @ 50ML/HR INFUSING TO LEFT A/C. CALL LIGHT IN REACH. CPOC.
[2019-08-21] VITALS (7 sets, daily range): BP systolic 171–200; BP diastolic 66–87
[2019-08-21 04:50] LABS: BASOPHILS 0.2 % (0-2); EOSINOPHILS 2.4 % (0-7); HEMATOCRIT 45.1 % (42.0-54.0); HEMOGLOBIN 14.6 g/dL (13.5-17.5); IMMATURE GRANULOCYTES 0.2 % (0-5); LYMPHOCYTES 23.4 % (15-50); MCH 30.9 pg (26.0-34.0); MCHC 32.4 g/dL (31.0-37.0); MCV 95.3 fL (80.0-100.0); MEAN PLATELET VOLUME 9.5 fL (7.4-10.4); MONOCYTES 8.3 % (2-11); NEUTROPHILS 65.5 % (40-80); PLATELET COUNT 180 10x3/uL (130-400); RBC 4.73 10x6/uL (4.20-6.10); RDW 13.9 % (11.5-14.5); WBC 8.2 10x3/uL (4.8-10.8)
--- NOTE | 2019-08-21 04:50 | NUR ---
PT HAS RESTED THROUGH THE NIGHT. PT TEACHING WAS DONE ON HOW TO INSTILL HIS CRUSHED/DILUTED MEDS INTO HIS PEG TUBE AND THEN TO FOLLOW WITH WATER TO CLEANSE HIS PEG. ALSO SPOKE WITH PATIENT ON HOW TO DO BOLUS FEEDINGS VIA PEG FOR WHEN HE GOES HOME. PT VOICED UNDERSTANDING AND GAVE APPROPRIATE RETURN DEMONSTRATION.
[2019-08-21 05:00] LABS: CALC OSMOLALITY 283 mosm/kg (275-300); CALCIUM 8.5 mg/dL (8.5-10.1); CARBON DIOXIDE 30.7 mmol/L (21.0-32.0); CHLORIDE - SERUM 104 mmol/L (98-107); CREATININE - SERUM 0.9 mg/dL (0.6-1.3); GLUCOSE 126 mg/dL (74-106); POTASSIUM - SERUM 3.2 mmol/L (3.5-5.1); SODIUM 142 mmol/L (136-145); UREA NITROGEN 11 mg/dL (7-18); eGFR NON AFRICAN AMERICAN > 90 mL/min (90-120)
--- NOTE | 2019-08-21 07:15 | NUR ---
RECEIVED PT IN BED EYES CLOSED RESP UNLABORED SKIN W/D COLOR WNL NAD NOTED
--- NOTE | 2019-08-21 08:20 | MORECARE ---
CASE MANAGEMENT DISCHARGE SUMMARY PATIENT: FERNY ASHER JR UNIT: [id number] ADM DATE: 08/15/19 AGE: 58 : 64 SEX: M ROOM/BED: D.4975 AUTHOR: MARISOL,DOC PHYSICIAN: REFERRING PHYSICIAN: SAMANTHA WONG MD DATE OF SERVICE: 08/21/19 Discharge Plan Patient Name: FERNY ASHER Facility: [facility]:[place] : 1960 Planned Disposition: Home Anticipated Discharge Date: Discharge Date: Expected LOS: Initial Reviewer: [email or web address] Initial Review Date: 08/17/2019 Generated: 08/21/19 9:19 am Comments DCP- Discharge Planning Updated by [email or web address]: Iesha Dai on 08/17/19 2:[address] Patient Name: FERNY ASHER Admission Status: ER Accout number: [id number] Admission Date: 08-15-2019 : 1960 Admission Diagnosis:DIZZINESS AND GIDDINESS Attending: SAMANTHA WONG Current LOS: 2 Anticipated DC Date: Planned Disposition: Home [place] Insurance: [place] PRIVATE [employer] [employer] Discharge Planning Comments: CM met with patient to complete initial dc planning assessment. CM educated patient on the CM role and verbal consent given by patient to complete assessment. Patient lives at home alone. At discharge patient plans to return and feels this is a safe discharge. CM discussed availability of home health, rehab services, and medical equipment. Patient denied known discharge needs at this time. CM will continue to follow and will assist as needed with dc plans/needs. Finishing Manager: Iesha Dai DCPIA - Discharge Planning Initial Assessment Updated by [email or web address]: Iesha Dai on 08/17/19 3:54 pm * Is the patient Alert and Oriented? Yes * How many steps to enter\exit or inside your home? 0/0 * PCP Dr. Caba in [place] * Pharmacy [facility] on [place] and [facility] * Preadmission Environment Home Alone * ADLs Independent * Equipment None * List name and contact numbers for known caregivers / representatives who currently or will assist patient after discharge: Hai helen - [phone] * Verbal permission to speak to the caregivers and representatives has been obtained from the patient. Yes * Community resources currently utilized None * Additional services required to return to the preadmission environment? No * Can the patient safely return to the preadmission environment? Yes * Has this patient been hospitalized within the prior 30 days at any hospital? No External Providers External Provider: [facility] Next Contact Date: Service Request Date: Service Type: Resolution: Reviewer: Comments: [facility] Next Contact Date: Service Request Date: Service Type: Resolution: Reviewer: Comments: Last DP export: 08/17/19 3:01 p Patient Name: FERNY ASHER Page [phone] at 0820 All edits/amendments must be made on the electronic document DICTATION DATE: 08/21/19818 NETWORK SPECIALIST: MINDA 08/21/19818 RPT#: [id number] DC DATE: STATUS: ADM IN [facility] [address] [place] [address] END OF REPORT
--- NOTE | 2019-08-21 08:27 | MORECARE ---
CASE MANAGEMENT DISCHARGE SUMMARY PATIENT: FERNY ASHER JR UNIT: [id number] ADM DATE: 08/15/19 AGE: 58 : 64 SEX: M ROOM/BED: D.5176 AUTHOR: MARISOL,DOC PHYSICIAN: REFERRING PHYSICIAN: SAMANTHA WONG MD DATE OF SERVICE: 08/21/19 Discharge Plan Patient Name: FERNY ASHER Facility: [facility]:[place] : 1960 Planned Disposition: Home Anticipated Discharge Date: Discharge Date: Expected LOS: Initial Reviewer: [email or web address] Initial Review Date: 08/17/2019 Generated: 08/21/19 9:26 am Comments DCP- Discharge Planning Updated by [email or web address]: Iesha Dai on 08/21/19 7:[address] CM met with patient to discuss home health and infusion company. Patient chooses [facility] and [place]. I gave him a SSA Disability packet per his request. CM will continue to follow and assist with discharge planning/needs. DCP- Discharge Planning Updated by [id number]: Iesha Dai on 08/17/19 2:[address] Patient Name: FERNY ASHER Admission Status: ER Accout number: [id number] Admission Date: 08-15-2019 : 1960 Admission Diagnosis:DIZZINESS AND GIDDINESS Attending: SAMANTHA WONG Current LOS: 2 Anticipated DC Date: Planned Disposition: Home Primary Insurance: [place] PRIVATE OPT[place] [facility] Discharge Planning Comments: CM met with patient to complete initial dc planning assessment. CM educated patient on the CM role and verbal consent given by patient to complete assessment. Patient lives at home alone. At discharge patient plans to return and feels this is a safe discharge. CM discussed availability of home health, rehab services, and medical equipment. Patient denied known discharge needs at this time. CM will continue to follow and will assist as needed with dc plans/needs. Intern Product Marketing Manager: Iesha Dai DCPIA - Discharge Planning Initial Assessment Updated by [email or web address]: Iesha Dai on 08/17/19 3:54 pm * Is the patient Alert and Oriented? Yes * How many steps to enter\exit or inside your home? 0/0 * PCP Dr. Caba in [place] * Pharmacy [facility] on [place] and [facility] * Preadmission Environment Home Alone * ADLs Independent * Equipment None * List name and contact numbers for known caregivers / representatives who currently or will assist patient after discharge: Hai cervantes - [phone] * Verbal permission to speak to the caregivers and representatives has been obtained from the patient. Yes * Community resources currently utilized None * Additional services required to return to the preadmission environment? No * Can the patient safely return to the preadmission environment? Yes * Has this patient been hospitalized within the prior 30 days at any hospital? No Coverage Notice Reviewer: [id number] Gosia Dai Notice Issued Date-Time: 08/21/2019 8:19 Notice Type: Patient Choice Letter Notice Delivered To: Patient Relationship to Patient: Warp Clamper Name: Delivery Method: HAND - Hand Delivered Catherine Days: Prior Verbal Notification: Recipient Understood Notice: Yes Recipient Signature: Yes Med Rec Note Co-signed by Attending: Coverage Notice Comment: [facility] Last DP export: 08/21/19 7:20 a Patient Name: FERNY ASHER Page 11005 at 0827 All edits/amendments must be made on the electronic document DICTATION DATE: 08/21/19825 MANGANESE HEATER: MINDA 08/21/19825 RPT#: [id number] DC DATE: STATUS: ADM IN [facility] [address] [place] [address] END OF REPORT
--- NOTE | 2019-08-21 10:12 | NUR ---
Nutrition Follow-up: POD 3 PEG placement. Pt tolerating TF at goal. Spoke to HOWARD Julian re: bolus feeds for d/c. Diet: Jevity 1.2 @ 60 mL/hr Wt: 180# (08/17) Labs noted: K+ 3.2, Glu 126 Meds noted: Carafate, MVI, Protonix, NS @ 50 -For Jevity 1.2 bolus feeds (6 cartons per day) at d/c, rec 1.5 cartons q 3 hrs over a 12 hr period (ie [id number]) + H2O flushes 75 mL before/after feeds. -RD following.
--- NOTE | 2019-08-21 14:54 | MORECARE ---
CASE MANAGEMENT DISCHARGE SUMMARY PATIENT: FERNY ASHER JR UNIT: [id number] ADM DATE: 08/15/19 AGE: 58 : 64 SEX: M ROOM/BED: D.6183 AUTHOR: MARISOL,DOC PHYSICIAN: REFERRING PHYSICIAN: SAMANTHA WONG MD DATE OF SERVICE: 08/21/19 Discharge Plan Patient Name: FERNY ASHER Facility: [facility]:[place] : 1960 Planned Disposition: Home Anticipated Discharge Date: Discharge Date: Expected LOS: Initial Reviewer: [email or web address] Initial Review Date: 08/17/2019 Generated: 08/21/19 3:53 pm Comments DCP- Discharge Planning Updated by [id number]: Iesha Dai on 08/21/19 7:[address] CM met with patient to discuss home health and infusion company. Patient chooses [facility] and [place]. I gave him a SSA Disability packet per his request. CM will continue to follow and assist with discharge planning/needs. DCP- Discharge Planning Updated by [email or web address]: Iesha Dai on 08/17/19 2:[address] Patient Name: FERNY ASHER Admission Status: ER Accout number: [id number] Admission Date: 08-15-2019 : 1960 Admission Diagnosis:DIZZINESS AND GIDDINESS Attending: SAMANTHA WONG Current LOS: 2 Anticipated DC Date: Planned Disposition: Home Primary Insurance: [facility] PRIVATE OPTIONS [facility] Discharge Planning Comments: CM met with patient to complete initial dc planning assessment. CM educated patient on the CM role and verbal consent given by patient to complete assessment. Patient lives at home alone. At discharge patient plans to return and feels this is a safe discharge. CM discussed availability of home health, rehab services, and medical equipment. Patient denied known discharge needs at this time. CM will continue to follow and will assist as needed with dc plans/needs. Toll Bridge Operator: Iesha Dai DCPIA - Discharge Planning Initial Assessment Updated by [email or web address]: Iesha Dai on 08/17/19 3:54 pm * Is the patient Alert and Oriented? Yes * How many steps to enter\exit or inside your home? 0/0 * PCP Dr. Caba in [place] * Pharmacy [facility] on [place] and [facility] * Preadmission Environment Home Alone * ADLs Independent * Equipment None * List name and contact numbers for known caregivers / representatives who currently or will assist patient after discharge: Hai cervantes - [phone] * Verbal permission to speak to the caregivers and representatives has been obtained from the patient. Yes * Community resources currently utilized None * Additional services required to return to the preadmission environment? No * Can the patient safely return to the preadmission environment? Yes * Has this patient been hospitalized within the prior 30 days at any hospital? No External Providers External Provider: [facility] Next Contact Date: Service Request Date: Service Type: Resolution: Reviewer: Comments: Coverage Notice Reviewer: [email or web address] Gosia Dai Notice Issued Date-Time: 08/21/2019 8:19 Notice Type: Patient Choice Letter Notice Delivered To: Patient Relationship to Patient: Investment Banking Associate Name: Delivery Method: HAND - Hand Delivered Catherine Days: Prior Verbal Notification: Recipient Understood Notice: Yes Recipient Signature: Yes Med Rec Note Co-signed by Attending: Coverage Notice Comment: [facility] [place] Last DP export: 08/21/19 7:27 a Patient Name: FERNY ASHER Page 52825 at 1454 All edits/amendments must be made on the electronic document DICTATION DATE: 08/21/191452 DEPUTY SHERIFF CUSTODY: MINDA 08/21/19 145 RPT#: [id number] DC DATE: STATUS: ADM IN [facility] [address] [place] [address] END OF REPORT
--- NOTE | 2019-08-21 15:01 | MORECARE ---
CASE MANAGEMENT DISCHARGE SUMMARY PATIENT: FERNY ASHER JR UNIT: [id number] ADM DATE: 08/15/19 AGE: 58 : 64 SEX: M ROOM/BED: D.3683 AUTHOR: MARISOL,DOC PHYSICIAN: REFERRING PHYSICIAN: SAMANTHA WONG MD DATE OF SERVICE: 08/21/19 Discharge Plan Patient Name: FERNY ASHER Facility: [facility]:[place] : 1960 Planned Disposition: Home Anticipated Discharge Date: Discharge Date: Expected LOS: Initial Reviewer: [email or web address] Initial Review Date: 08/17/2019 Generated: 08/21/19 4:01 pm Comments DCP- Discharge Planning Updated by [email or web address]: Iesha Dai on 08/21/19 1:[address] I SPOKE WITH FRANKLIN WITH [facility] AND PATIENT HAS NOT SEEN DR CABA IN A YEAR. UPDATED CLINICAL FAXED TO DR CABA'S OFFICE ([phone]) ATTN TO PAULINA FOR THEM TO SIGN OFF ON HH ORDERS. [facility] WILL BE SUPPLYING THE TUBE FEEDING AND SUPPLIES AT 100%, HE WILL NOT HAVE A COPAY. THEY WILL DO TEACHING ON BOLUS FEEDS TODAY AND BRING INITIAL SUPPLY. CM WILL CONTINUE TO FOLLOW AND ASSIST WITH DC PLANNING/NEEDS. DCP- Discharge Planning Updated by [id number]: Iesha Dai on 08/21/19 7:[address] CM met with patient to discuss home health and infusion company. Patient chooses [facility] and [place]. I gave him a SSA Disability packet per his request. CM will continue to follow and assist with discharge planning/needs. DCP- Discharge Planning Updated by [email or web address]: Iesha Dai on 08/17/19 2:[address] Patient Name: FERNY ASHER Admission Status: ER Accout number: [id number] Admission Date: 08-15-2019 : 1960 Admission Diagnosis:DIZZINESS AND GIDDINESS Attending: SAMANTHA WONG Current LOS: 2 Anticipated DC Date: Planned Disposition: Home Primary Insurance: [place] [employer] [place] [facility] Discharge Planning Comments: CM met with patient to complete initial dc planning assessment. CM educated patient on the CM role and verbal consent given by patient to complete assessment. Patient lives at home alone. At discharge patient plans to return and feels this is a safe discharge. CM discussed availability of home health, rehab services, and medical equipment. Patient denied known discharge needs at this time. CM will continue to follow and will assist as needed with dc plans/needs. Carbonating Stone Cleaner: Iesha Dai DCPIA - Discharge Planning Initial Assessment Updated by [email or web address]: Iesha Dai on 08/17/19 3:54 pm * Is the patient Alert and Oriented? Yes * How many steps to enter\exit or inside your home? 0/0 * PCP Dr. Caba in [place] * Pharmacy [facility] on [place] and [facility] * Preadmission Environment Home Alone * ADLs Independent * Equipment None * List name and contact numbers for known caregivers / representatives who currently or will assist patient after discharge: Hai cervantes [phone] * Verbal permission to speak to the caregivers and representatives has been obtained from the patient. Yes * Community resources currently utilized None * Additional services required to return to the preadmission environment? No * Can the patient safely return to the preadmission environment? Yes * Has this patient been hospitalized within the prior 30 days at any hospital? No Coverage Notice Reviewer: [email or web address] - Iesha Dai Notice Issued Date-Time: 08/21/2019 8:19 Notice Type: Patient Choice Letter Notice Delivered To: Patient Relationship to Patient: Ophthalmic Technician Name: Delivery Method: HAND - Hand Delivered Catherine Days: Prior Verbal Notification: Recipient Understood Notice: Yes Recipient Signature: Yes Med Rec Note Co-signed by Attending: Coverage Notice Comment: [facility] Last DP export: 08/21/19 1:54 p Patient Name: FERNY ASHER Page 45561 at 1501 All edits/amendments must be made on the electronic document DICTATION DATE: 08/21/19 1501 SUPERVISOR ROVING: MINDA 08/21/19 1501 RPT#: [id number] DC DATE: STATUS: ADM IN [facility] [address] [place] [address] END OF REPORT
--- NOTE | 2019-08-21 19:48 | NUR ---
RECEIVED BEDSIDE REPORT. PATIENT IS ALERT AND ORIENTED, SITTING UP IN BED. IT WAS REPORTED TO THIS RN THAT PATIENT HAD CALLED CLINIC LICENSED PRACTICAL NURSE. THIS RN WENT IN TO ANSWER PATIENT CALL LIGHT. PATIENT STATED THAT HE ALL OF SUDDEN HAD A HEAD ACHE, AND THAT HIS NECK FELT VERY HOT. CHECKED BLOOD SUGAR AND BLOOD PRESSURE. FSBS WAS 111. BLOOD PRESSURE 179/82 HR 77 O2 SAT 96 RA. R 18. PATIENT STATED THAT FOR THE LAST COUPLE OF DAYS HIS LEFT ARM AND FINGERS ARE NUMB. PATIENT EXPLAINED TO THIS RN THAT IF HE HELD ICE IN HIS LEFT HAND HE WOULD NOT BE ABLE TO FEEL IT. NOTIFIED CAROLYNN FERREIRA APN. NO NEW ORDERS GIVEN. CALLL IGHT WITHIN REACH. WILL CPOC.
--- NOTE | 2019-08-21 21:45 | NUR ---
PATIENT WAS DISCONNECTED FROM IV AND PEG TUBE, WAITING FOR RESTORATIVE CARE TECHNICIAN TO BRING JEVITY 1.2. RECEIVED PHONE CALL FROM ER. PATIENT WAS FOUND OUTSIDE BY [facility] IN FRONT OF HOSPITAL. SMOKING A CIGARETTE.
[2019-08-22 04:00] VITALS: BP 170/82
[2019-08-22 05:49] LABS: BASOPHILS 0.1 % (0-2); EOSINOPHILS 2.4 % (0-7); HEMATOCRIT 44.9 % (42.0-54.0); HEMOGLOBIN 14.4 g/dL (13.5-17.5); IMMATURE GRANULOCYTES 0.4 % (0-5); LYMPHOCYTES 21.7 % (15-50); MCH 30.5 pg (26.0-34.0); MCHC 32.1 g/dL (31.0-37.0); MCV 95.1 fL (80.0-100.0); MEAN PLATELET VOLUME 10.4 fL (7.4-10.4); MONOCYTES 10.1 % (2-11); NEUTROPHILS 65.3 % (40-80); RBC 4.72 10x6/uL (4.20-6.10); WBC 7.9 10x3/uL (4.8-10.8)
[2019-08-22 05:56] LABS: PLATELET COUNT 234 10x3/uL (130-400)
[2019-08-22 06:19] LABS: ALBUMIN 3.1 g/dL (3.4-5.0); ALKALINE PHOSPHATASE 72 U/L (30-120); ALT (SGPT) 19 U/L (10-68); BILIRUBIN - TOTAL 0.41 mg/dL (0.2-1.3); CALC OSMOLALITY 277 mosm/kg (275-300); CALCIUM 9.1 mg/dL (8.5-10.1); CARBON DIOXIDE 28.8 mmol/L (21.0-32.0); CHLORIDE - SERUM 103 mmol/L (98-107); CREATININE - SERUM 0.9 mg/dL (0.6-1.3); GLUCOSE 109 mg/dL (74-106); POTASSIUM - SERUM 3.5 mmol/L (3.5-5.1); PROTEIN - SERUM 6.8 g/dL (6.4-8.2); SODIUM 139 mmol/L (136-145); UREA NITROGEN 11 mg/dL (7-18); eGFR NON AFRICAN AMERICAN > 90 mL/min (90-120)
[2019-08-22 08:13] VITALS: BP 193/76
--- NOTE | 2019-08-22 09:28 | NUR ---
CALLED PHARMACY TO BRING MULTIVITAMIN LIQUID. THEY STATED THEY WOULD.
--- NOTE | 2019-08-22 09:35 | MORECARE ---
CASE MANAGEMENT DISCHARGE SUMMARY PATIENT: FERNY ASHER JR UNIT: [id number] ADM DATE: 08/15/19 AGE: 58 : 64 SEX: M ROOM/BED: D.2491 AUTHOR: MARISOL,DOC PHYSICIAN: REFERRING PHYSICIAN: SAMANTHA WONG MD DATE OF SERVICE: 08/22/19 Discharge Plan Patient Name: FERNY ASHER Facility: [facility]:[place] : 1960 Planned Disposition: Home Anticipated Discharge Date: Discharge Date: Expected LOS: Initial Reviewer: [email or web address] Initial Review Date: 08/17/2019 Generated: 08/22/19 10:35 am Comments DCP- Discharge Planning Updated by [email or web address]: Iesha Dai on 08/22/19 8:[address] [place] with [facility] was here yesterday evening and delivered tube feeding solution and also teaching. He states patient was competent in his opinion with his feedings and medication delivery through the PEG tube. [facility] has been unable to get his PCP to sign off on home health at this time, they will try and reach Dr. Caba's nurse again today for f/u. CM will continue to follow and assist with discharge planning/needs. DCP- Discharge Planning Updated by [id number]: Iesha Dai on 08/21/19 1:[address] I SPOKE WITH FRANKLIN WITH [facility] AND PATIENT HAS NOT SEEN DR CABA IN A YEAR. UPDATED CLINICAL FAXED TO DR CABA'S OFFICE ([phone]) ATTN TO [facility] FOR THEM TO SIGN OFF ON HH ORDERS. [facility] WILL BE SUPPLYING THE TUBE FEEDING AND SUPPLIES AT 100%, HE WILL NOT HAVE A COPAY. THEY WILL DO TEACHING ON BOLUS FEEDS TODAY AND BRING INITIAL SUPPLY. CM WILL CONTINUE TO FOLLOW AND ASSIST WITH DC PLANNING/NEEDS. DCP- Discharge Planning Updated by [id number]: Iesha Dai on 08/21/19 7:[address] CM met with patient to discuss home health and infusion company. Patient chooses [facility] and [place]. I gave him a SSA Disability packet per his request. CM will continue to follow and assist with discharge planning/needs. DCP- Discharge Planning Updated by [email or web address]: Iesha Dai on 08/17/19 2:[address] Patient Name: FERNY ASHER Admission Status: ER Accout number: [id number] Admission Date: 08-15-2019 : 1960 Admission Diagnosis:DIZZINESS AND GIDDINESS Attending: SAMANTHA WONG Current LOS: 2 Anticipated DC Date: Planned Disposition: Home [place] Insurance: [place] [employer] [facility] Discharge Planning Comments: CM met with patient to complete initial dc planning assessment. CM educated patient on the CM role and verbal consent given by patient to complete assessment. Patient lives at home alone. At discharge patient plans to return and feels this is a safe discharge. CM discussed availability of home health, rehab services, and medical equipment. Patient denied known discharge needs at this time. CM will continue to follow and will assist as needed with dc plans/needs. Campus Ambassador: Iesha Dai DCPIA - Discharge Planning Initial Assessment Updated by [email or web address]: Iesha Dai on 08/17/19 3:54 pm * Is the patient Alert and Oriented? Yes * How many steps to enter\exit or inside your home? 0/0 * PCP Dr. Caba in [place] * Pharmacy [facility] on [place] and [facility] * Preadmission Environment Home Alone * ADLs Independent * Equipment None * List name and contact numbers for known caregivers / representatives who currently or will assist patient after discharge: Hai helen - [phone] * Verbal permission to speak to the caregivers and representatives has been obtained from the patient. Yes * Community resources currently utilized None * Additional services required to return to the preadmission environment? No * Can the patient safely return to the preadmission environment? Yes * Has this patient been hospitalized within the prior 30 days at any hospital? No Coverage Notice Reviewer: [id number] - Iesha Dai Notice Issued Date-Time: 08/21/2019 8:19 Notice Type: Patient Choice Letter Notice Delivered To: Patient Relationship to Patient: Hot Dip Galvanizer Name: Delivery Method: HAND - Hand Delivered Catherine Days: Prior Verbal Notification: Recipient Understood Notice: Yes Recipient Signature: Yes Med Rec Note Co-signed by Attending: Coverage Notice Comment: [facility] FOR [facility] [place] Last DP export: 08/21/19 2:01 p Patient Name: FERNY ASHER Page [id number] at 0935 All edits/amendments must be made on the electronic document DICTATION DATE: 08/22/19934 BINDER CASER: MINDA 08/22/19934 RPT#: [id number] DC DATE: STATUS: ADM IN [facility] [address] [place] [address] END OF REPORT
--- NOTE | 2019-08-22 10:39 | OP ---
PATIENT NAME: FERNY ASHER JR MEDICAL RECORD: [id number] :64 LOCATION:D.M2 D.2115 ADMISSION DATE:08/15/19 SURGEON: JOSE G MORALES MD DATE OF OPERATION: 08/18/2019 PREOPERATIVE DIAGNOSES: 1. 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 2. Cerebrovascular accident. 3. Coronary artery disease with history of coronary artery bypass graft. 4. Hypertension. POSTOPERATIVE DIAGNOSES: 1. 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 2. Cerebrovascular accident. 3. Coronary artery disease with history of coronary artery bypass graft. 4. Hypertension. PROCEDURE: PEG tube placement. SURGEON: Jose G Morales MD REPORT OF PROCEDURE: An Olympus endoscope was advanced through the mouth and esophagus. We entered the gastric lumen and insufflated the stomach. We found the area to house the PEG tube on the body of the stomach. The stomach was then prepped and draped in sterile fashion and 5 cc of 1% lidocaine was infused into the tissue just below the medial left subcostal region. A skin incision was made with an 11-blade and Angiocath needle was brought through the abdominal wall into the gastric lumen. The wire was advanced through this Angiocath and was grasped with an Endo snare. We pulled this Endo snare and a wire through the mouth and esophagus and affixed the wire to the PEG tube. The PEG tube was then pulled with the wire through the abdominal wall down past the mouth and esophagus until it rested in good position at 3.5 cm at the skin. We reinserted the scope and can see that the PEG tube was in good position with no sign of any active bleeding. COMPLICATIONS: None. CONDITION: Stable. ANESTHESIA: TIVA. BLOOD LOSS: Minimal. TRANSINT:[id number] Voice Confirmation ID: [id number] DOCUMENT ID: [id number] JOSE G MORALES MD at 1039 CC: [id number] DICTATION DATE: 08/18/19 1057 STRAND AND BINDER CONTROLLER: 08/18/19 1325 ADM IN [place] [address] [place] [address]
--- NOTE | 2019-08-22 10:43 | NUR ---
PT GAVE MEDS SELF VIA PEG TUBE. PT TUBE CLAMPED FOR SHOWER AND IV COVERED.
[2019-08-22 12:27] VITALS: BP 156/69
--- NOTE | 2019-08-22 12:47 | NUR ---
PT STATES HE SHAVED OVER THE SINK AND TOOK A SHOWER AND HE WAS BRISHING HIS TEETH HE COULD NOT RECALL THE TIME AND BECAME VERY BUSY. PT'S BP WAS CHECKED AND IT IS 156/79 AND HR IS 68 NORMAL SINUS RHYTHM ON TELEMETRY. PT STATES WHEN HE BECAME DIZZY AND FEELING WEAK HE LAID DOWN AND STARTED FEELING BETTER. THISNURSE CALLED AND SPOKE WITH TESFAYE DRAKE AND TOLD HER WHAT HAPPENED AND SHE STATES TO ORDER A HEAD CT WITHOUT CONTRAST. ORDERED HEAD CT WITHOUT CONTRAST.
--- NOTE | 2019-08-22 12:52 | NUR ---
I have reviewed this patient and I concur with the Shift Assessment completed by the Licensed Practical Nurse today this shift.
[2019-08-22] MEDS ORDERED: FEXOFENADINE HC60 MG PEG (14:09)
[2019-08-22] MEDS ORDERED: Nicoderm [PBKC] TRANSDERM (14:09)
[2019-08-22] MEDS ORDERED: LIPITOR10 MG PEG (14:10)
[2019-08-22] MEDS ORDERED: ACETAMINOPHEN500 M1 PEG (14:10)
[2019-08-22] MEDS ORDERED: LISINOPRIL40 MG PEG (14:10)
[2019-08-22] MEDS ORDERED: CARDIZEM 90 MG90 MG PEG (14:10)
[2019-08-22] MEDS ORDERED: HYDRALAZINE HCL50 MG PEG (14:10)
[2019-08-22] MEDS ORDERED: ASPIRIN325 MG PEG (14:10)
[2019-08-22] MEDS ORDERED: Multivitamin LIQUID PEG (14:11)
[2019-08-22] MEDS ORDERED: PROTONIX FOR OR40 MG PEG (14:11)
[2019-08-22] MEDS ORDERED: CARAFATE1 G PEG (14:11)
--- NOTE | 2019-08-22 14:16 | NUR ---
I have reviewed this patient and I concur with the Shift Assessment completed by the Licensed Practical Nurse today this shift.
--- NOTE | 2019-08-22 16:07 | NUR ---
IV AND TELEMETRY DCD. DC PLANS GIVEN. UNDERSTANDING VOICED.
--- NOTE | 2019-08-22 16:51 | MORECARE ---
CASE MANAGEMENT DISCHARGE SUMMARY PATIENT: FERNY ASHER JR UNIT: [id number] ADM DATE: 08/15/19 AGE: 58 : 64 SEX: M ROOM/BED: D.4570 AUTHOR: MARISOL,DOC PHYSICIAN: REFERRING PHYSICIAN: SAMANTHA WONG MD DATE OF SERVICE: 08/22/19 Discharge Plan Patient Name: FERNY ASHER Facility: [facility]:[place] : 1960 Planned Disposition: Home Anticipated Discharge Date: Discharge Date: 08/22/2019 Expected LOS: Initial Reviewer: [id number] Initial Review Date: 08/17/2019 Generated: 08/22/19 5:50 pm Comments DCP- Discharge Planning Updated by [id number]: Iesha Dai on 08/22/19 3:45 pm RAISA Rossie with [facility] has gotten 2 weeks of home health approved through patient's PCP. I have instructed the patient he needs to f/u with Dr. Caba in one week so that he can continue his home health. Patient states he will just go to [facility] because it was closer. I informed the patient he could not just go to a clinic, he needed f/u with his PCP to continue home health. He states he will have a friend drive him to the PCP office for his f/u. He again verified his home address and phone number. I informed him that [facility] would call in the morning to see him tomorrow and he needs to answer his phone and be at home for home health, voiced understanding. Home today with home health. DCP- Discharge Planning Updated by [email or web address]: Iesha Dai on 08/22/19 8:31 am RAISA Yates with [facility] was here yesterday evening and delivered tube feeding solution and also teaching. He states patient was competent in his opinion with his feedings and medication delivery through the PEG tube. [facility] has been unable to get his PCP to sign off on home health at this time, they will try and reach Dr. Caba's nurse again today for f/u. CM will continue to follow and assist with discharge planning/needs. DCP- Discharge Planning Updated by [id number]: Iesha Dai on 08/21/19 1:[address] I SPOKE WITH FRANKLIN WITH [facility] AND PATIENT HAS NOT SEEN DR CABA IN A YEAR. UPDATED CLINICAL FAXED TO DR CABA'S OFFICE ([phone]) ATTN TO [facility] FOR THEM TO SIGN OFF ON HH ORDERS. [facility] WILL BE SUPPLYING THE TUBE FEEDING AND SUPPLIES AT 100%, HE WILL NOT HAVE A COPAY. THEY WILL DO TEACHING ON BOLUS FEEDS TODAY AND BRING INITIAL SUPPLY. CM WILL CONTINUE TO FOLLOW AND ASSIST WITH DC PLANNING/NEEDS. DCP- Discharge Planning Updated by [id number]: Iesha Dai on 08/21/19 7:[address] CM met with patient to discuss home health and infusion company. Patient chooses [facility] or [facility] and [place]. I gave him a SSA Disability packet per his request. CM will continue to follow and assist with discharge planning/needs. DCP- Discharge Planning Updated by [email or web address]: Iesha Dai on 08/17/19 2:[address] Patient Name: FERNY ASHER Admission Status: ER Accout number: [id number] Admission Date: 08-15-2019 : 1960 Admission Diagnosis:DIZZINESS AND GIDDINESS Attending: SAMANTHA WONG Current LOS: 2 Anticipated DC Date: Planned Disposition: Home Primary Insurance: [place] [employer] [facility] Discharge Planning Comments: CM met with patient to complete initial dc planning assessment. CM educated patient on the CM role and verbal consent given by patient to complete assessment. Patient lives at home alone. At discharge patient plans to return and feels this is a safe discharge. CM discussed availability of home health, rehab services, and medical equipment. Patient denied known discharge needs at this time. CM will continue to follow and will assist as needed with dc plans/needs. Hand Sprayer: Iesha Dai DCPIA - Discharge Planning Initial Assessment Updated by [email or web address]: Iesha Dai on 08/17/19 3:54 pm * Is the patient Alert and Oriented? Yes * How many steps to enter\exit or inside your home? 0/0 * PCP Dr. Caba in [place] * Pharmacy [facility] on [place] and [facility] * Preadmission Environment Home Alone * ADLs Independent * Equipment None * List name and contact numbers for known caregivers / representatives who currently or will assist patient after discharge: Hai cervantes [phone] * Verbal permission to speak to the caregivers and representatives has been obtained from the patient. Yes * Community resources currently utilized None * Additional services required to return to the preadmission environment? No * Can the patient safely return to the preadmission environment? Yes * Has this patient been hospitalized within the prior 30 days at any hospital? No Coverage Notice Reviewer: [email or web address] Gosia Dai Notice Issued Date-Time: 08/21/2019 8:19 Notice Type: Patient Choice Letter Notice Delivered To: Patient Relationship to Patient: Small Stock Facer Name: Delivery Method: HAND - Hand Delivered Catherine Days: Prior Verbal Notification: Recipient Understood Notice: Yes Recipient Signature: Yes Med Rec Note Co-signed by Attending: Coverage Notice Comment: B[facility]EDEN FOR [facility] Last DP export: 08/22/19 8:35 a Patient Name: FERNY ASHER Page [id number] at 1651 All edits/amendments must be made on the electronic document DICTATION DATE: 08/22/19 1651 BEAN SNAPPER: MINDA 08/22/19 165 RPT#: [id number] DC DATE:08/22/19 STATUS: DIS IN [facility] [address] [place] [address] END OF REPORT
--- NOTE | 2019-08-24 07:28 | MORECARE ---
CASE MANAGEMENT DISCHARGE SUMMARY PATIENT: FERNY ASHER JR UNIT: [id number] ADM DATE: 08/15/19 AGE: 58 : 64 SEX: M ROOM/BED: D.2457 AUTHOR: MARISOL,DOC PHYSICIAN: REFERRING PHYSICIAN: SAMANTHA WONG MD DATE OF SERVICE: 08/24/19 Discharge Plan Patient Name: FERNY ASHER Facility: [facility]:[place] : 1960 Planned Disposition: Home Anticipated Discharge Date: Discharge Date: 08/22/2019 Expected LOS: 0 Initial Reviewer: [email or web address] Initial Review Date: 08/17/2019 Generated: 08/24/19 8:27 am Comments DCP- Discharge Planning Updated by [email or web address]: Iesha Dai on 08/22/19 3:[address] [place] with [facility] has gotten 2 weeks of home health approved through patient's PCP. I have instructed the patient he needs to f/u with Dr. Caba in one week so that he can continue his home health. Patient states he will just go to [facility] because it was closer. I informed the patient he could not just go to a clinic, he needed f/u with his PCP to continue home health. He states he will have a friend drive him to the PCP office for his f/u. He again verified his home address and phone number. I informed him that [facility] would call in the morning to see him tomorrow and he needs to answer his phone and be at home for home health, voiced understanding. Home today with home health. DCP- Discharge Planning Updated by [email or web address]: Iesha Dai on 08/22/19 8:31 am RAISA Yates with [facility] was here yesterday evening and delivered tube feeding solution and also teaching. He states patient was competent in his opinion with his feedings and medication delivery through the PEG tube. [facility] has been unable to get his PCP to sign off on home health at this time, they will try and reach Dr. Caba's nurse again today for f/u. CM will continue to follow and assist with discharge planning/needs. DCP- Discharge Planning Updated by [id number]: Iesha Dai on 08/21/19 1:[address] I SPOKE WITH FRANKLIN WITH [facility] AND PATIENT HAS NOT SEEN DR CABA IN A YEAR. UPDATED CLINICAL FAXED TO DR CABA'S OFFICE ([phone]) ATTN TO PAULINA FOR THEM TO SIGN OFF ON HH ORDERS. [facility] WILL BE SUPPLYING THE TUBE FEEDING AND SUPPLIES AT 100%, HE WILL NOT HAVE A COPAY. THEY WILL DO TEACHING ON BOLUS FEEDS TODAY AND BRING INITIAL SUPPLY. CM WILL CONTINUE TO FOLLOW AND ASSIST WITH DC PLANNING/NEEDS. DCP- Discharge Planning Updated by [email or web address]: Iesha Dai on 08/21/19 7:[address] CM met with patient to discuss home health and infusion company. Patient chooses [facility] or [facility] and [place]. I gave him a SSA Disability packet per his request. CM will continue to follow and assist with discharge planning/needs. DCP- Discharge Planning Updated by [email or web address]: Iesha Dai on 08/17/19 2:[address] Patient Name: FERNY ASHER Admission Status: ER Accout number: [id number] Admission Date: 08-15-2019 : 1960 Admission Diagnosis:DIZZINESS AND GIDDINESS Attending: SAMANTHA WONG Current LOS: 2 Anticipated DC Date: Planned Disposition: Home [place] Insurance: [place] [employer] [facility] Discharge Planning Comments: CM met with patient to complete initial dc planning assessment. CM educated patient on the CM role and verbal consent given by patient to complete assessment. Patient lives at home alone. At discharge patient plans to return and feels this is a safe discharge. CM discussed availability of home health, rehab services, and medical equipment. Patient denied known discharge needs at this time. CM will continue to follow and will assist as needed with dc plans/needs. Practice Office Associate: Iesha Dai DCPIA - Discharge Planning Initial Assessment Updated by [email or web address]: Iesha Dai on 08/17/19 3:54 pm * Is the patient Alert and Oriented? Yes * How many steps to enter\exit or inside your home? 0/0 * PCP Dr. Caba in [place] * Pharmacy [facility] on [place] and [facility] * Preadmission Environment Home Alone * ADLs Independent * Equipment None * List name and contact numbers for known caregivers / representatives who currently or will assist patient after discharge: Hai cervantes - [phone] * Verbal permission to speak to the caregivers and representatives has been obtained from the patient. Yes * Community resources currently utilized None * Additional services required to return to the preadmission environment? No * Can the patient safely return to the preadmission environment? Yes * Has this patient been hospitalized within the prior 30 days at any hospital? No Coverage Notice Reviewer: [email or web address] Gosia Dai Notice Issued Date-Time: 08/21/2019 8:19 Notice Type: Patient Choice Letter Notice Delivered To: Patient Relationship to Patient: Street Sprinkler Name: Delivery Method: HAND - Hand Delivered Catherine Days: Prior Verbal Notification: Recipient Understood Notice: Yes Recipient Signature: Yes Med Rec Note Co-signed by Attending: Coverage Notice Comment: B[facility]EDEN FOR [facility] Last DP export: 08/22/19 3:51 p Patient Name: FERNY ASHER Page [id number] at 0728 All edits/amendments must be made on the electronic document DICTATION DATE: 08/24/19726 GLASS CLEANER: MINDA 08/24/19726 RPT#: [id number] DC DATE:08/22/19 STATUS: DIS IN [facility] [address] [place] [address] END OF REPORT
== END 2019-08-22 16:08 | disposition home health service (06) | DRG 65 ==
LOC: D.ER 20:53 → D.M2 21:57
PROVIDERS: Family Medicine; Internal Medicine Interventional Cardiology; ADMIT Internal Medicine Nephrology; ATTEND Internal Medicine Nephrology
PROC: B2111ZZ Fluoroscopy of Multiple Coronary Arteries using Low Osmolar Contrast (ICD-10-PCS; 2019-08-16)
PROC: B2151ZZ Fluoroscopy of Left Heart using Low Osmolar Contrast (ICD-10-PCS; 2019-08-16)
PROC: 4A023N7 Measurement of Cardiac Sampling and Pressure, Left Heart, Percutaneous Approach (ICD-10-PCS; 2019-08-16)
PROC: B2131ZZ Fluoroscopy of Multiple Coronary Artery Bypass Grafts using Low Osmolar Contrast (ICD-10-PCS; principal; 2019-08-16 11:07)
PROC: 0DB28ZX Excision of Middle Esophagus, Via Natural or Artificial Opening Endoscopic, Diagnostic (ICD-10-PCS; 2019-08-17)
PROC: 0DH63UZ Insertion of Feeding Device into Stomach, Percutaneous Approach (ICD-10-PCS; 2019-08-18)
DX: I63.9 Cerebral infarction, unspecified (principal); I24.9 Acute ischemic heart disease, unspecified; F17.203 Nicotine dependence unspecified, with withdrawal; I16.0 Hypertensive urgency; I25.119 Atherosclerotic heart disease of native coronary artery with unspecified angina pectoris; G89.29 Other chronic pain; M54.9 Dorsalgia, unspecified; R22.1 Localized swelling, mass and lump, neck; R13.12 Dysphagia, oropharyngeal phase; K21.0 Gastro-esophageal reflux disease with esophagitis; K29.70 Gastritis, unspecified, without bleeding; K29.80 Duodenitis without bleeding; F10.10 Alcohol abuse, uncomplicated

== ENCOUNTER 2019-11-20 15:19 | Emergency (ER) | payer MEDICAID ==
[~2019-11-20] VITALS: Ht 170.2 cm; Wt 74.5 kg
[~2019-11-20 15:19] MED LIST changes: +ACETAMINOPHEN500 M1 PEG; +ASPIRIN325 MG PEG; +ASPIRIN81 MG PO; +CARAFATE1 G PEG; +CARDIZEM 90 MG90 MG PEG; +FEXOFENADINE HC60 MG PEG; +HYDRALAZINE HCL50 MG PEG; +LIPITOR10 MG PEG; +LISINOPRIL40 MG PEG; +Multivitamin LIQUID PEG; +Nicoderm [PBKC] TRANSDERM; +PROTONIX FOR OR40 MG PEG
[2019-11-20 15:27] VITALS: Ht 170.2 cm; Wt 74.5 kg
[2019-11-20 16:19] LABS: BASOPHILS 0.1 % (0-2); HEMATOCRIT 43.6 % (42.0-54.0); HEMOGLOBIN 14.2 g/dL (13.5-17.5); IMMATURE GRANULOCYTES 0.4 % (0-5); LYMPHOCYTES 26.5 % (15-50); MCH 30.3 pg (26.0-34.0); MCHC 32.6 g/dL (31.0-37.0); MEAN PLATELET VOLUME 9.7 fL (7.4-10.4); MONOCYTES 8.2 % (2-11); NEUTROPHILS 63.8 % (40-80); PLATELET COUNT 192 10x3/uL (130-400); RBC 4.69 10x6/uL (4.20-6.10); RDW 13.7 % (11.5-14.5); WBC 8.2 10x3/uL (4.8-10.8)
[2019-11-20 16:23] LABS: APTT 25.2 SECONDS (22.8-39.4); INR 1.01 (0.85-1.17); PROTIME 13.2 SECONDS (11.6-15.0)
[2019-11-20 16:30] LABS: CALC OSMOLALITY 275 mosm/kg (275-300); CALCIUM 9.2 mg/dL (8.5-10.1); CARBON DIOXIDE 30.2 mmol/L (21.0-32.0); CREATININE - SERUM 1.1 mg/dL (0.6-1.3); GLUCOSE 105 mg/dL (74-106); POTASSIUM - SERUM 4.4 mmol/L (3.5-5.1); SODIUM 138 mmol/L (136-145); UREA NITROGEN 13 mg/dL (7-18); eGFR NON AFRICAN AMERICAN 73 mL/min (90-120)
[2019-11-20 16:47] LABS: ALBUMIN 3.5 g/dL (3.4-5.0); ALKALINE PHOSPHATASE 75 U/L (30-120); ALT (SGPT) 21 U/L (10-68); BILIRUBIN - TOTAL 0.87 mg/dL (0.2-1.3); CKMB 1.9 U/L (0.0-3.6); CREATINE KINASE 125 UL (21-232); MAGNESIUM - SERUM 2.1 mg/dL (1.8-2.4); PROTEIN - SERUM 7.1 g/dL (6.4-8.2); THYROID STIMULATING HORMONE 0.21 uIU/mL (0.36-3.74)
[2019-11-20 17:03] LABS: CHLORIDE - SERUM 102 mmol/L (98-107); TROPONIN-I < 0.017 ng/mL (0.000-0.060)
[2019-11-20 19:37] VITALS: BP 165/77
== END 2019-11-20 19:37 | disposition home or self-care (01) ==
LOC: D.ER 15:19
PROVIDERS: Family Medicine
DX: E86.0 Dehydration (principal); R73.9 Hyperglycemia, unspecified; I10 Essential (primary) hypertension; Z72.0 Tobacco use; R94.6 Abnormal results of thyroid function studies; R51 Headache; H53.8 Other visual disturbances

== ENCOUNTER 2019-12-23 11:44 | Emergency (ER) | payer MEDICAID ==
[2019-12-23 11:53] VITALS: Ht 170.2 cm
[2019-12-23 12:26] LABS: BASOPHILS 0.1 % (0-2); EOSINOPHILS 2.3 % (0-7); HEMOGLOBIN 15.4 g/dL (13.5-17.5); IMMATURE GRANULOCYTES 0.4 % (0-5); LYMPHOCYTES 29.3 % (15-50); MCH 30.6 pg (26.0-34.0); MCHC 33.5 g/dL (31.0-37.0); MCV 91.5 fL (80.0-100.0); MEAN PLATELET VOLUME 9.4 fL (7.4-10.4); MONOCYTES 6.2 % (2-11); NEUTROPHILS 61.7 % (40-80); PLATELET COUNT 173 10x3/uL (130-400); RBC 5.03 10x6/uL (4.20-6.10); RDW 13.2 % (11.5-14.5); WBC 7.9 10x3/uL (4.8-10.8)
[2019-12-23 12:35] LABS: ANION GAP 9.7 mmol/L (8-16); CALCIUM 8.8 mg/dL (8.5-10.1); CARBON DIOXIDE 29.2 mmol/L (21.0-32.0); CREATININE - SERUM 1.1 mg/dL (0.6-1.3); INR 0.93 (0.85-1.17); POTASSIUM - SERUM 3.9 mmol/L (3.5-5.1); PROTIME 12.4 SECONDS (11.6-15.0)
[2019-12-23 12:40] LABS: ALBUMIN 3.6 g/dL (3.4-5.0); BILIRUBIN - TOTAL 0.27 mg/dL (0.2-1.3); PROTEIN - SERUM 7.2 g/dL (6.4-8.2)
[2019-12-23 14:02] LABS: CKMB 1.7 U/L (0.0-3.6); CREATINE KINASE 62 UL (21-232); THYROID STIMULATING HORMONE 0.79 uIU/mL (0.36-3.74)
[2019-12-23 14:04] LABS: TROPONIN-I < 0.017 ng/mL (0.000-0.060)
[2019-12-23 21:30] VITALS: BP 132/84
== END 2019-12-23 21:53 | disposition other institution (70) ==
LOC: D.ER 11:44
PROVIDERS: Family Medicine
DX: I63.9 Cerebral infarction, unspecified (principal); R94.31 Abnormal electrocardiogram [ECG] [EKG]; I12.9 Hypertensive chronic kidney disease with stage 1 through stage 4 chronic kidney disease, or unspecified chronic kidney disease; N18.9 Chronic kidney disease, unspecified; H54.7 Unspecified visual loss; Z95.1 Presence of aortocoronary bypass graft; R53.1 Weakness